=== PATIENT | male | born 1950 | race Caucasian/White ===

== ENCOUNTER → 2020-11-21 14:23 | Outpatient (CLI) | payer MEDICARE, SELFPAY ==
[2020-11-21 18:40] LABS: Anion Gap 9 (5-15); BUN 12 mg/dL (7-18); BUN/Creat Ratio 13.6 RATIO (10-20); Calcium,Total 9.2 mg/dL (8.5-10.1); Chloride 102 mmol/L (98-107); Cholesterol 177 mg/dL (200); Creatinine, Serum 0.88 mg/dL (0.70-1.30); EST Glomerular Filtration Rate 91 mL/min (>60); Est Glom Filt Rate - Afr Amer 111 mL/min (>60); Glucose 109 mg/dL (74-106); High Density Lipoprotein 59 mg/dL; Potassium 3.8 mmol/L (3.5-5.1); Sodium Level 140 mmol/L (136-145); Triglycerides 144 mg/dL; Very Low Density Lipoprotein 29 mg/dL (5-40)
== END ==
PROVIDERS: PCP Family Medicine Geriatric Medicine; Referring Provider Psychiatry & Neurology Psychiatry; Visit Provider Psychiatry & Neurology Psychiatry
DX: R63.4 Abnormal weight loss (principal); Z79.899 Other long term (current) drug therapy
CPT/HCPCS: 36415; 80048; 80061; 84443

== ENCOUNTER 2021-06-12 16:44 | Outpatient (CLI) | payer MEDICARE, SELFPAY ==
[2021-06-12 17:19] LABS: Absolute Lymphocyte Count 1.63 X10^3/uL (0.83-4.51); Absolute Neutrophil Count 4.2 X10^3/uL (2.0-7.7); Basophil# 0.08 X10^3/uL; Basophil% 1.1 % (0-1); Eosinophil# 0.47 X10^3/uL; Eosinophils% 6.4 % (0-5); Hematocrit 43.5 % (40-54); Hemoglobin 14.7 g/dL (13.0-16.5); Lymphocyte # 1.63 X10^3/ul (0.83-4.51); Lymphocyte % 22.1 % (19-41); Mean Corp Hgb Conc 33.8 g/dL (32-36); Mean Corpuscular Hgb 31.5 pg (27.0-32.0); Mean Corpuscular Volume 93.3 fL (80-94); Mean Platelet Vol. 9.3 fl (6.2-12.0); Monocyte# 1.04 X10^3/uL; Monocyte% 14.1 % (0-10); NRBC Flagged by Analyzer 0 % (0-5); Neutrophil # 4.15 X10^3/uL (2.7-7.7); Platelet Count 303 K/mm3 (150-450); RBC Distribution Width CV 13.1 % (11.6-14.6); Red Blood Count 4.66 M/mm3 (4.6-6.2); White Blood Count 7.4 K/mm3 (4.4-11.0)
[2021-06-12 18:06] LABS: AST(SGOT) 16 U/L (15-37); Alanine Aminotransfer ALT/SGPT 18 U/L (16-61); Albumin, Serum 3.5 g/dL (3.2-5.0); Alkaline Phosphatase 82 U/L (45-117); Anion Gap 3 (5-15); BUN 15 mg/dL (7-18); BUN/Creat Ratio 16.3 RATIO (10-20); Calcium,Total 9.1 mg/dL (8.5-10.1); Chloride 106 mmol/L (98-107); Creatinine, Serum 0.92 mg/dL (0.70-1.30); EST Glomerular Filtration Rate 86 mL/min (>60); Est Glom Filt Rate - Afr Amer 104 mL/min (>60); Globulin 3.6 g/dL (2.2-4.2); Glucose 90 mg/dL (74-106); PSA,Total - Annual Screen 3.96 ng/mL (0.00-4.00); Protein, Total 7.1 g/dL (6.4-8.2); Sodium Level 139 mmol/L (136-145); Thyroid Stim Hormone (TSH) 1.77 uIU/mL (0.358-3.74)
[2021-06-13 13:02] LABS: Hepatitis C Antibody Non-Reactive (Nonreactive); Vitamin D,25 Hydroxy 40.8 ng/mL
== END 2021-06-12 23:59 | disposition home or self-care (01) ==
LOC: POLAB3 16:45
PROVIDERS: PCP Family Medicine Geriatric Medicine; Visit Provider Family Medicine Geriatric Medicine
DX: Z00.00 Encounter for general adult medical examination without abnormal findings (principal); E55.9 Vitamin D deficiency, unspecified; R53.83 Other fatigue; Z12.5 Encounter for screening for malignant neoplasm of prostate
CPT/HCPCS: 36415; 80053; 82306; 84153; 84443; 85025; 86803; G0103

== ENCOUNTER → 2022-10-23 | Outpatient (CLI) | payer MEDICARE, SELFPAY, MEDICAID ==
--- NOTE | 2022-10-23 08:45 | AAAS_ITS ---
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 in cross- Peak systolic flow velocities within the proximal sectional axis. aorta measure 68.4 cm/sec. Proximal aorta measures1.96cm. in longitudinal Peak systolic flow velocities within the mid aorta axis. measure 76.4 cm/sec. Mid aorta measures1.57 x 1.53cm. in cross- Peak systolic flow velocities within the distal sectional axis. aorta measure 76.4 cm/sec. Mid aorta measures1.55cm. in longitudinal axis. Distal aorta measures1.33 x 1.21cm. in cross- sectional axis. Distal aorta measures1.39cm. in longitudinal axis. Left Iliac Artery Left iliac artery measures 1.03 x 0.97 cm. in the cross-sectional axis. Left iliac artery measures 1.01 prox cm. in the longitudinal axis. Peak systolic velocity in the left iliac artery measures 105.1 cm/sec. Right Iliac Artery Right iliac artery measures 1.20 x 1.06 cm. in the cross-sectional axis. Right iliac artery measures 1.06 prox cm. in the longitudinal axis. Peak systolic velocity in the right iliac artery measures 94.2 cm/sec. Procedure Aorta IVC Iliac vasculature or bypass grafts [id number]. Exam performed in department. VL/AAA Screening Interpretation Summary Aorta patent, normal caliber Bilateral iliac arteries patent, normal caliber Ordering Physician: Naresh Ambriz Referring Physician: Sudhir Hughes Chi Performed By: Tere Vega, ANDREW, RVT
== END | disposition home or self-care (01) ==
PROVIDERS: PCP Family Medicine Geriatric Medicine; Referring Provider Internal Medicine Cardiovascular Disease; Visit Provider Internal Medicine Cardiovascular Disease
DX: R94.31 Abnormal electrocardiogram [ECG] [EKG] (principal); I10 Essential (primary) hypertension; E78.2 Mixed hyperlipidemia
CPT/HCPCS: 76706

== ENCOUNTER 2023-02-03 17:52 | Inpatient (IN) | payer MEDICARE, MEDICAID, SELFPAY ==
[2023-02-03] VITALS (7 sets, daily range): BP systolic 113–139; BP diastolic 64–81; PULSE 65–85; RESP 13–18; TEMP 36.6–37.1; O2SAT 98–99; BMI 22.4; BMI 22.1
--- NOTE | 2023-02-03 18:05 | CT_ITS ---
STUDY: CT ABDOMEN AND PELVIS WITH CONTRAST REASON FOR EXAM: Male, 72 years old. Rectal bleeding RADIATION DOSAGE (If Supplied By Facility): CTDIvol = ( 10.27 ) mGy, DLP = ( 506.88 ) mGycm TECHNIQUE: Transaxial images were obtained from the dome of the diaphragm to the symphysis pubis without oral contrast. IV 100mL Isovue-370 was administered. Sagittal and coronal images were reconstructed. Individualized dose optimization techniques were used for this CT. COMPARISON: None. FINDINGS: The visualized lung bases show underlying emphysema. The visualized portions of the heart are within normal limits. Normal liver. There are multiple gallstones. Normal spleen. Normal pancreas. Normal bilateral adrenal glands. There is a horseshoe kidney without obstructive uropathy or suspicious solid renal lesion, no nephrolithiasis. Normal visualized stomach. Nondistended fluid-filled small and large bowel loops throughout the abdomen suggests diffuse enteritis there is also retained stool in the colon and scattered colonic diverticula. No CT evidence of acute diverticulitis. Aorta not visualized There is diffuse atherosclerotic calcification of the abdominal aorta, without a demonstrated aneurysm. Normal inferior vena cava. Normal retroperitoneum. Normal urinary bladder. There is a left-sided inguinal hernia containing adipose tissue. There are degenerative changes of the visualized lumbar spine, and pelvis. CT/Abdomen/Pelvis W IV Cont ONLY IMPRESSION: Horseshoe kidney noted without obstructive uropathy or suspicious solid renal lesion. Cholelithiasis, no sonographic evidence of acute cholecystitis Retained stool throughout the majority of the colon with scattered colonic diverticula but no CT evidence of acute diverticulitis Fluid distended small bowel loops and ascending colon consistent with diffuse enteritis Electronically Signed: Man Millan MD at 19:53 EDT ,
[2023-02-03] MEDS: 0.9% Normal Saline (1000mL) 1,000 ML 999 ML IV (18:12)
[2023-02-03 18:13] LABS: Absolute Lymphocyte Count 1.24 X10^3/uL (0.83-4.51); Absolute Neutrophil Count 7.2 X10^3/uL (2.0-7.7); Basophil# 0.05 X10^3/uL; Basophil% 0.5 % (0-1); Eosinophil# 0.07 X10^3/uL; Eosinophils% 0.8 % (0-5); Hematocrit 29.1 % (40-54); Hemoglobin 9.4 g/dL (13.0-16.5); Lymphocyte # 1.24 X10^3/ul (0.83-4.51); Lymphocyte % 13.4 % (19-41); Mean Corp Hgb Conc 32.3 g/dL (32-36); Mean Corpuscular Hgb 29.8 pg (27.0-32.0); Mean Corpuscular Volume 92.4 fL (80-94); Mean Platelet Vol. 8.8 fl (6.2-12.0); Monocyte# 0.64 X10^3/uL; Monocyte% 6.9 % (0-10); NRBC Flagged by Analyzer 0 % (0-5); Neutrophil # 7.18 X10^3/uL (2.7-7.7); Neutrophil % 77.9 % (47-70); Platelet Count 412 K/mm3 (150-450); RBC Distribution Width CV 12.1 % (11.6-14.6); RBC Distribution Width SD 41.1 fl (35.1-43.9); Red Blood Count 3.15 M/mm3 (4.6-6.2); White Blood Count 9.2 K/mm3 (4.4-11.0)
--- NOTE | 2023-02-03 18:20 | RAD_ITS ---
STUDY: X-RAY CHEST REASON FOR EXAM: Male, 72 years old. dyspnea TECHNIQUE: 2 AP portable views COMPARISON: None. FINDINGS: EKG leads overlie the chest The lungs are clear and expanded. There is no demonstrated pleural abnormality. Normal size heart. Normal mediastinum and stefano. Normal visualized pulmonary arteries. Normal visualized aortic arch and descending thoracic aorta. Normal visualized thoracic spine. Normal visualized ribs, clavicles, and shoulders. There is no demonstrated abnormality of the visualized soft tissue structures of the upper abdomen. RAD/Chest 1 View (Portable) IMPRESSION: No acute pulmonary process Electronically Signed: Man Millan MD at 19:09 EDT ,
[2023-02-03 18:34] LABS: ALB/GLOB Ratio 0.8 RATIO (0.9-2.4); AST(SGOT) 10 U/L (15-37); Alanine Aminotransfer ALT/SGPT 17 U/L (16-61); Albumin, Serum 2.7 g/dL (3.2-5.0); Alkaline Phosphatase 77 U/L (45-117); Anion Gap 8 (5-15); BUN 22 mg/dL (7-18); BUN/Creat Ratio 22.2 RATIO (10-20); Calcium,Total 8.4 mg/dL (8.5-10.1); Chloride 97 mmol/L (98-107); Creatinine, Serum 0.99 mg/dL (0.70-1.30); EST Glomerular Filtration Rate 79 mL/min (>60); Est Glom Filt Rate - Afr Amer 96 mL/min (>60); Estimated Creatinine Clearance 69.82 ml/min; Globulin 3.2 g/dL (2.2-4.2); Glucose 132 mg/dL (74-106); Lipase 18 U/L (13-75); Potassium 3.6 mmol/L (3.5-5.1); Protein, Total 5.9 g/dL (6.4-8.2); Sodium Level 132 mmol/L (136-145); Troponin-I HS 14 pg/mL (3.0-78.0)
[2023-02-03 20:02] LABS: Bacteria 0 SEEN /hpf (None Seen); Mucous, Urine 0 SEEN /hpf (<or=2+); Red Blood Cells-Urine 0 SEEN /hpf (0-5); Squamous Epithelial Cells - UA 0 SEEN /hpf (0-5)
[2023-02-03 20:09] LABS: Color, Urine Yellow (Yellow); Glucose, Dipstick Normal (Normal); Ketone-Dipstick Negative (Negative); Leukocyte Esterase-Dipstick 25 /ul (Negative); Nitrite-Dipstick Negative (Negative); Occult Blood-Urine Negative /ul (Negative); Protein-Dipstick Negative (Negative); Specific Gravity, Urine 1.015 (1.002-1.030); Urine Bilirubin Dipstick Negative (Negative); Urine Clarity Clear (Clear); Urine Urobilinogen Normal (Normal)
--- NOTE | 2023-02-03 20:16 | PCM.HP.STD ---
HPI - General General Date of Admission: 02/03/23 Date of Service: 02/03/23 Chief Complaint: Rectal bleed for 3 times along with dizziness, near syncope on standing up HPI Nora LEDEZMA, is a 72 M who lives as assisted living in [facility] was brought by EMS for rectal bleed and feeling of dizziness and near syncopal episode. Patient states he has liquid dark stool like brownishabout 3-4 times per day for last 3 days. Patient thought that it will get better but today he felt dizzy lightheaded and near passing out when he tried to stand up. He was also near falls issues but he caught the chair therefore did not fall. Patient denies prior history of GI bleed. Never had colonoscopy. Denies abdominal pain, nausea or vomiting. Apparently [facility] called and notified that patient is COVID-positive. CT abdomen was done which shows fluid-filled dilated small bowel and ascending colon. Retained stool throughout the majority of colon with scattered colonic diverticula but no CT evidence of acute diverticulitis. In ED, patient vitals were in normal range. Patient not tachycardic. [facility] Medical History Abnormal EKG Essential hypertension Mixed hyperlipidemia Paranoid schizophrenia Home Medications bupropion HCl 150 mg tablet,12 hr sustained-release 150 mg PO BID 09/25/22 [History Last Taken Unknown] hydrochlorothiazide 25 mg tablet 25 mg PO DAILY 09/25/22 [History Last Taken Unknown] polyethylene glycol 3350 17 gram oral powder packet 17 g PO DAILY 09/25/22 [History Last Taken Unknown] acetaminophen 500 mg tablet 1,000 mg PO BID PRN fever or pain 10/14/22 [History Last Taken Unknown] haloperidol 5 mg tablet 5 mg PO QHS 10/14/22 [History Last Taken Unknown] sennosides 8.6 mg-docusate sodium 50 mg tablet (Senna Plus) 1 tab-cap PO BID 10/14/22 [History Last Taken Unknown] celecoxib 100 mg capsule 100 mg PO Q12H 02/03/23 [History Last Taken Unknown] tamsulosin 0.4 mg capsule 0.4 mg PO QHS 02/03/23 [History Last Taken Unknown] Allergy/AdvReac Type Severity Reaction Status Date / Time lisinopril Allergy Unknown Unknown Verified 02/03/23 17:54 Family History Father Cancer Surgical History History of tonsillectomy Social History Smoking Status: Current every day smoker tobacco type: cigarettes how long ago did patient quit smokin year ago alcohol intake: never substance use type: does not use caffeine: No ROS ROS Narrative Constitutional: Reports fatigue and weakness. No fever. HEENT: Reports systems reviewed and no addt'l complaints, except as documented Respiratory/Chest: No acute shortness of breath or respiratory distress or wheezing. CVS: No chest pain tightness or pressure. Gastrointestinal: No abdominal pain. Rest as described in HPI. No hematemesis or vomiting. Genitourinary: Denies burning urination or new urinary tract symptoms Musculoskeletal: Chronic C-spine arthritis. On celecoxib. Denies acute joint pain or limited range of motion. No acute injury Neurologic: Denies seizure-like symptoms. Psychiatric: History of paranoid schizophrenia. On antidepressant medication. skin: No ulcer. No rash Endocrinology: Reports systems reviewed and no addt'l complaints, except as documented Hematologic/Lymphatic: Reports systems reviewed and no addt'l complaints, except as documented Rest 14 ROS are negative except as mentioned in HPI Vital Signs Vital Signs Vital Signs: 02/03/23 17:54 02/03/23 17:55 02/03/23 19:08 Temperature 98.8 F Temperature Source Oral Pulse Rate 85 77 Respiratory Rate 16 16 Respiratory Effort Normal Non-Labored Respiratory Pattern Normal Blood Pressure 113/79 139/76 H Blood Pressure Mean 90 97 Pulse Ox 99 99 Oxygen Delivery Method Room Air Room Air 02/03/23 19:38 Temperature Temperature Source Pulse Rate 81 Respiratory Rate 13 Respiratory Effort Respiratory Pattern Blood Pressure 129/81 H Blood Pressure Mean 97 Pulse Ox 99 Oxygen Delivery Method Room Air Weight Weight: 156 lb 11.979 oz Body Mass Index (BMI) 22.4 Physical Exam Narrative General: Alert, Oriented x3, Cooperative HEENT: Atraumatic, PERRLA, EOMI, Normocephalic Oral: Oral mucosa dry. No Gingival or Mucosal Lesions/ Ulcerations Neck: Supple, No JVD, Negative Carotid Bruits Lungs: Air entry diminished in bilateral lung bases. No crepitation/rhonchi Cardiovascular: Regular rate, Regular Rhythm, Normal S1, Normal S2, No murmurs Abdomen: Bowel Sounds Present, Soft, Non Tender, Non-Distended. No palpable mass. : No renal angle tenderness. No suprapubic tenderness. Extremities: No edema, Capillary Refill Less than 3 Seconds Skin: No rashes, No breakdown Musculoskeletal: No Tenderness to Palpation of Joints or Extremities Neurological: Cranial nerves II-XII grossly intact, DTR 2+/4. No acute focal neurological deficit. Psych/Mental Status: Normal Affect, Appropriate. Results Lab / Micro Data 02/03/23 17:59 02/03/23 17:59 Labs: Laboratory Results - last 24 hr 02/03/23 17:59: WBC 9.2, RBC 3.15 L, Hgb 9.4 L, Hct 29.1 L, MCV 92.4, MCH 29.8, MCHC 32.3, RDW Std Deviation 41.1, RDW Coeff of Terry 12.1, Plt Count 412, MPV 8.8, Immature Gran % (Auto) 0.500, Neut % (Auto) 77.9 H, Lymph % (Auto) 13.4 L, Stone % (Auto) 6.9, Eos % (Auto) 0.8, Baso % (Auto) 0.5, Absolute Neuts (auto) 7.2, Absolute Lymphs (auto) 1.24, Nucleated RBC % 0, Sodium 132 L, Potassium 3.6, Chloride 97 L, Carbon Dioxide 27.0, Anion Gap 8, BUN 22 H, Creatinine 0.99, Estim Creat Clear Calc 69.82, Est GFR (MDRD) Af Amer 96, Est GFR (MDRD) Non-Af 79, BUN/Creatinine Ratio 22.2 H, Glucose 132 H, Calcium 8.4 L, Total Bilirubin 0.30, AST 10 L, ALT 17, Alkaline Phosphatase 77, Troponin I High Sens 14, Total Protein 5.9 L, Albumin 2.7 L, Globulin 3.2, Albumin/Globulin Ratio 0.8 L, Lipase 18 02/03/23 18:10: Blood Type O POSITIVE, Antibody Screen NEGATIVE 02/03/23 19:55: Urine Color Yellow, Urine Clarity Clear, Urine pH 6.0, Ur Specific [place] 1.015, Urine Protein Negative, Urine Glucose (UA) Normal, Urine Ketones Negative, Urine Occult Blood Negative, Urine Nitrite Negative, Urine Bilirubin Negative, Urine Urobilinogen Normal, Ur Leukocyte Esterase 25 H Radiology Impression Abdomen/Pelvis CT 02/03/23 18:05 IMPRESSION: Horseshoe kidney noted without obstructive uropathy or suspicious solid renal lesion. Cholelithiasis, no sonographic evidence of acute cholecystitis Retained stool throughout the majority of the colon with scattered colonic diverticula but no CT evidence of acute diverticulitis Fluid distended small bowel loops and ascending colon consistent with diffuse enteritis Electronically Signed: Man Millan MD at 19:53 EDT , Chest X-Ray 02/03/23 18:20 IMPRESSION: No acute pulmonary process Electronically Signed: Man Millan MD at 19:09 EDT , Assessment & Plan Assessment/Plan (1) Lower GI bleed: PLAN: Plan This is a 72-year-old gentleman being admitted for rectal bleed consistent with lower GI bleed. 1. Acute GI bleed, exact etiology unclear most likely lower but possible differential diverticular bleed, less likely enteritis, possible rapid transit from upper GI bleed: Patient is being admitted in PCU. Does not have abdominal pain but CT shows fluid-filled distended small bowel loops fluid-filled dilated small bowel and ascending colon. Retained stool throughout the majority of colon with scattered colonic diverticula but no CT evidence of acute diverticulitis. GI is consulted. Discussed with Dr. Aceves and colon prep ordered for colonoscopy tomorrow AM. Started on Protonix 40 mg IV twice daily. Hold celecoxib. IV fluid Ringer lactate 100 ml per hour for 2 L. Hold home stool softeners. Stool for enteric bacteriology panel, ova parasite and stool C. difficile sent by ED 2. Acute blood loss anemia secondary to GI bleed: Patient baseline hemoglobin is between 14 to 15 g. It dropped to 9.4 g. H&H every 6 hourly. Type and crossmatch and transfuse if hemoglobin drops less than 7 g or hemodynamic instability. 3. long-term reporting of COVID-19 infection: COVID-19 PCR ordered. Patient does not have shortness of breath chest pain fever abdominal pain. Currently no indication for dexamethasone or remdesivir. Exact time of onset is unclear. Patient tested on 02/01/2023 from no swab probably rapid antigen test. 5. Chronic cervical spine arthritis on celecoxib: Hold celecoxib admission level. Continue acetaminophen for pain. 6. Hypertension and dyslipidemia: Hold HCTZ as patient looks dehydrated and having symptoms of near syncope. Patient also on tamsulosin probably for BPH 7. Paranoid schizophrenia: Patient on buprenorphine and haloperidol continued. Advanced directive. Living will/advanced directive/end of life care: Patient does not have living will or advanced directive. 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 After discussion of benefits/risks procedures involved with full code, DNR CC arrest and DNR CC, the patient opted for DNRCC arrest with no intubation Patient doesn't want artificial life support including intubation, tube feed, ventilator and/chest compression, and DC shock if needed Total time spent in [id number] encounter in discussion of advanced directive 17 minutes. Laboratory Results 02/03/23 17:59: WBC 9.2, RBC 3.15 L, Hgb 9.4 L, Hct 29.1 L, MCV 92.4, MCH 29.8, MCHC 32.3, RDW Std Deviation 41.1, RDW Coeff of Terry 12.1, Plt Count 412, MPV 8.8, Immature Gran % (Auto) 0.500, Neut % (Auto) 77.9 H, Lymph % (Auto) 13.4 L, Stone % (Auto) 6.9, Eos % (Auto) 0.8, Baso % (Auto) 0.5, Absolute Neuts (auto) 7.2, Absolute Lymphs (auto) 1.24, Nucleated RBC % 0, Sodium 132 L, Potassium 3.6, Chloride 97 L, Carbon Dioxide 27.0, Anion Gap 8, BUN 22 H, Creatinine 0.99, Estim Creat Clear Calc 69.82, Est GFR (MDRD) Af Amer 96, Est GFR (MDRD) Non-Af 79, BUN/Creatinine Ratio 22.2 H, Glucose 132 H, Calcium 8.4 L, Magnesium 2.0, Total Bilirubin 0.30, AST 10 L, ALT 17, Alkaline Phosphatase 77, Troponin I High Sens 14, Total Protein 5.9 L, Albumin 2.7 L, Globulin 3.2, Albumin/Globulin Ratio 0.8 L, Lipase 18 02/03/23 18:10: Blood Type O POSITIVE, Antibody Screen NEGATIVE 02/03/23 19:55: Urine Color Yellow, Urine Clarity Clear, Urine pH 6.0, Ur Specific [place] 1.015, Urine Protein Negative, Urine Glucose (UA) Normal, Urine Ketones Negative, Urine Occult Blood Negative, Urine Nitrite Negative, Urine Bilirubin Negative, Urine Urobilinogen Normal, Ur Leukocyte Esterase 25 H, Urine RBC 0 SEEN, Urine WBC 0-5 SEEN, Ur Squamous Epith Cells 0 SEEN, Urine Bacteria 0 SEEN, Urine Mucus 0 SEEN 02/03/23 20:42: PT Pending, INR Pending Charges/Coding Visit Charges Inpatient E&M: 03437 Init Hosp L3 Procedures Hospitalists Procedures: 26124 Advncd Care Plan 30 Min
[2023-02-03 20:33] LABS: White Blood Cells 0-5 SEEN /hpf (0-5)
--- NOTE | 2023-02-03 20:45 | EDS_ITS ---
HPI HPI - GI History of Present Illness Chief Complaint: GI Bleed Narrative Narrative: 72-year-old male presenting with lower GI bleed. He had dark stools times a day for the last 3 days. He states has been lightheaded since this started. Denies any significant abdominal pain. No fevers or chills. No nausea or vomiting. Patient not on any blood thinners. Patient denies any history of GI bleed. PFSH PFS Medical History Abnormal EKG Essential hypertension Mixed hyperlipidemia Paranoid schizophrenia Home Medications bupropion HCl 150 mg tablet,12 hr sustained-release 150 mg PO BID 09/25/22 [History Last Taken Unknown] hydrochlorothiazide 25 mg tablet 25 mg PO DAILY 09/25/22 [History Last Taken Unknown] polyethylene glycol 3350 17 gram oral powder packet 17 g PO DAILY 09/25/22 [History Last Taken Unknown] acetaminophen 500 mg tablet 1,000 mg PO BID PRN fever or pain 10/14/22 [History Last Taken Unknown] haloperidol 5 mg tablet 5 mg PO QHS 10/14/22 [History Last Taken Unknown] sennosides 8.6 mg-docusate sodium 50 mg tablet (Senna Plus) 1 tab-cap PO BID 10/14/22 [History Last Taken Unknown] celecoxib 100 mg capsule 100 mg PO Q12H 02/03/23 [History Last Taken Unknown] tamsulosin 0.4 mg capsule 0.4 mg PO QHS 02/03/23 [History Last Taken Unknown] Allergy/AdvReac Type Severity Reaction Status Date / Time lisinopril Allergy Unknown Unknown Verified 02/03/23 17:54 Family History Father Cancer Surgical History History of tonsillectomy Social History Smoking Status: Current every day smoker tobacco type: cigarettes how long ago did patient quit smokin year ago alcohol intake: never substance use type: does not use caffeine: No ROS ROS ED Constitutional Constitutional ED: Denies chills, fever(s) or sweats Eyes Eyes: Denies blurry vision or change in vision ENT ENT ED: Denies ear pain or sore throat Cardiovascular Cardiovascular: Reports other Details: Lightheadedness ; Denies chest pain, palpitations or racing heartbeat Respiratory/Chest Respiratory/Chest: Denies cough, dyspnea or sputum Gastrointestinal Gastrointestinal: Reports other Details: Bloody stools ; Denies abdominal pain, constipation, diarrhea, nausea or vomiting Genitourinary Genitourinary ED: Denies dysuria, hematuria or urinary frequency Musculoskeletal Musculoskeletal: Denies arthralgias, myalgias or neck pain Integumentary Denies abscess, Abrasions or rash Neurologic Neurologic: Denies headache(s), paresthesias or weakness Psychiatric Psychiatric: Denies anxiety, depression, suicidal ideation or suicidal thoughts Endocrine Endocrinology: Denies polydipsia or polyuria EXAM Physical Exam Const Vital Signs: 02/03/23 17:54 02/03/23 17:55 02/03/23 19:08 Temperature 98.8 F Temperature Source Oral Pulse Rate 85 77 Respiratory Rate 16 16 Respiratory Effort Normal Non-Labored Respiratory Pattern Normal Blood Pressure 113/79 139/76 H Blood Pressure Mean 90 97 Pulse Ox 99 99 Oxygen Delivery Method Room Air Room Air 02/03/23 19:38 Temperature Temperature Source Pulse Rate 81 Respiratory Rate 13 Respiratory Effort Respiratory Pattern Blood Pressure 129/81 H Blood Pressure Mean 97 Pulse Ox 99 Oxygen Delivery Method Room Air Positive well nourished General Appearance ED: NAD; Negative for pallor HEENT Reports moist mucous membranes normocephalic and atraumatic Eyes PERRL and EOMs intact bilaterally General Eye ED: Yes pale conjunctiva Neck no lymphadenopathy Resp normal respiratory effort Cardio regular rate and regular rhythm GI non-tender and non-distended Palpation: soft Back/Spine no CVA tenderness Neuro CN's II-XII intact bilaterally Sensorium / Orientation: alert Psych mental status grossly normal Skin no wounds General Skin Exam: Negative for jaundice or pallor MDM MDM MDM Narrative Medical decision making narrative: Patient presenting with bloody bowel movements for last 3 days and he is also complaining of lightheadedness and shortness of breath. differential includes upper GI bleed, lower GI bleed, anemia, dehydration, electrolyte normalities, colitis, diverticulitis, enteritis. CBC will be obtained to assess white blood cell count, hemoglobin, platelets. CMP to assess liver function, renal function and electrolytes. High-sensitivity troponin and EKG will be obtained to assess for ischemia/dysrhythmia. Chest x-ray rule pneumonia. She will be typed and screened. He has obvious bloody stool on exam so I did not send an occult stool. Clinically the patient describes orthostatic so I did not do orthostatics here today. His hemoglobin is 9.4 sleep 14.7 a year ago. CMP unremarkable. High-sensitivity troponin is 14. EKG normal sinus rhythm with a ventricular rate of 80 bpm without sign of ischemic change or ectopy on my interpretation. Chest x-ray my interpretation shows no acute process. CT of the abdomen pelvis shows diffuse enteritis. I spoke with Dr. Aceves who recommended doing stool studies and admitting the patient. Discussed with the hospitalist for admission. After the patient was admitted the long term called and stated that the patient was positive for COVID. He had not mentioned this. I discussed this with the hospitalist. Patient placed on precautions. Impression: 1. Enteritis 2. Lower GI bleed 3. Acute blood loss anemia 4. COVID-19 Lab Data Labs: Laboratory Results - last 24 hr 02/03/23 02/03/23 02/03/23 17:59 18:10 19:55 WBC 9.2 RBC 3.15 L Hgb 9.4 L Hct 29.1 L MCV 92.4 MCH 29.8 MCHC 32.3 RDW Std Deviation 41.1 RDW Coeff of Terry 12.1 Plt Count 412 MPV 8.8 Immature Gran % (Auto) 0.500 Neut % (Auto) 77.9 H Lymph % (Auto) 13.4 L [place] % (Auto) 6.9 Eos % (Auto) 0.8 Baso % (Auto) 0.5 Absolute Neuts (auto) 7.2 Absolute Lymphs (auto) 1.24 Nucleated RBC % 0 Sodium 132 L Potassium 3.6 Chloride 97 L Carbon Dioxide 27.0 Anion Gap 8 BUN 22 H Creatinine 0.99 Estim Creat Clear Calc 69.82 Est GFR (MDRD) Af Amer 96 Est GFR (MDRD) Non-Af 79 BUN/Creatinine Ratio 22.2 H Glucose 132 H Calcium 8.4 L Magnesium 2.0 Total Bilirubin 0.30 AST 10 L ALT 17 Alkaline Phosphatase 77 Troponin I High Sens 14 Total Protein 5.9 L Albumin 2.7 L Globulin 3.2 Albumin/Globulin Ratio 0.8 L Lipase 18 Urine Color Yellow Urine Clarity Clear Urine pH 6.0 Ur Specific [place] 1.015 Urine Protein Negative Urine Glucose (UA) Normal Urine Ketones Negative Urine Occult Blood Negative Urine Nitrite Negative Urine Bilirubin Negative Urine Urobilinogen Normal Ur Leukocyte Esterase 25 H Urine RBC 0 SEEN Urine WBC 0-5 SEEN Ur Squamous Epith Cells 0 SEEN Urine Bacteria 0 SEEN Urine Mucus 0 SEEN Blood Type O POSITIVE Antibody Screen NEGATIVE Radiography Diagnostic Testing: Clinical Impression(s) from Imaging Studies Abdomen/Pelvis CT 02/03/23 18:05 IMPRESSION: Horseshoe kidney noted without obstructive uropathy or suspicious solid renal lesion. Cholelithiasis, no sonographic evidence of acute cholecystitis Retained stool throughout the majority of the colon with scattered colonic diverticula but no CT evidence of acute diverticulitis Fluid distended small bowel loops and ascending colon consistent with diffuse enteritis Electronically Signed: Man Millan MD at 19:53 EDT , Chest X-Ray 02/03/23 18:20 IMPRESSION: No acute pulmonary process Electronically Signed: Man Millan MD at 19:09 EDT , Discharge Plan Triage Chief Complaint: GI Bleed Other Complaint: Syncope ED Provider: Alec Grady Dx/Rx/DC Orders Primary Care Provider: Sudhir Hughes Chi
--- NOTE | 2023-02-03 20:49 | EKG12_ITS ---
Test Reason : Blood Pressure : / mmHG Vent. Rate : 080 BPM Atrial Rate : 080 BPM P-R Int : 162 ms QRS Dur : 090 ms QT Int : 360 ms P-R-T Axes : 064 059 053 degrees QTc Int : 415 ms Normal sinus rhythm Normal ECG No previous ECGs available Confirmed by ANIVAL ARTHRU, CLAUDIA ([id number]), news editor ABIGAIL VELÁSQUEZ ([id number]) on 02/04/2023 1:40:24 PM Referred By: Confirmed By:CLAUDIA FLORIAN MD
[2023-02-03 21:21] LABS: International Normalized Ratio 1.2; Prothrombin Time (Protime)PT. 14.8 SECONDS (11.7-14.9)
[2023-02-03] MEDS: Lactated Ringers 1,000 ML 100 ML IV (21:57)
[2023-02-03] MEDS: 0.9% Saline Lock 10 ML Syringe IV (21:58)
[2023-02-03] MEDS: Electrolyte Solution/Peg's 4000 ML 2000 ML PO (21:58)
[2023-02-03] MEDS: Tamsulosin HCl 0.4 MG Capsule PO (22:40)
[2023-02-03] MEDS: Haloperidol 5 MG Tablet PO (22:40)
[2023-02-03] MEDS: MELATONIN 10 MG TABLET PO (22:40)
[2023-02-03] MEDS: buPROPion (SR) 150 MG Tablet.SA PO (22:40)
[2023-02-03] MEDS: Pantoprazole Sodium 40 MG in 0.9% Normal Saline (100mL MB+) 100 ML 330 MG IV (22:41)
--- NOTE | 2023-02-03 23:00 | CON.PCM.GI_ITS ---
HPI Consult Data Date of Consult: 02/03/23 HPI Narrative Reason for Consultation: GI bleed HPI Narrative: HALI LEDEZMA, is a 72 M who presents by EMS for rectal bleed and feeling of dizziness and near syncopal episode. Patient states he has liquid dark stool like brownishabout 3-4 times per day for last 3 days. Patient thought that it will get better but today he felt dizzy lightheaded and near passing out when he tried to stand up. He was also near falls issues but he caught the chair therefore did not fall. Patient denies prior history of GI bleed. Never had colonoscopy. Denies abdominal pain, nausea or vomiting. Apparently senior care called and notified that patient is COVID-positive. CT abdomen was done which shows fluid-filled dilated small bowel and ascending colon. Retained stool throughout the majority of colon with scattered colonic diverticula but no CT evidence of acute diverticulitis. He had a significant drop in his hemoglobin and I was consulted for management lower GI bleed. [facility] Medical History Abnormal EKG Essential hypertension Mixed hyperlipidemia Paranoid schizophrenia Home Medications bupropion HCl 150 mg tablet,12 hr sustained-release 150 mg PO BID 09/25/22 [History Last Taken Unknown] hydrochlorothiazide 25 mg tablet 25 mg PO DAILY 09/25/22 [History Last Taken Unknown] polyethylene glycol 3350 17 gram oral powder packet 17 g PO DAILY 09/25/22 [History Last Taken Unknown] acetaminophen 500 mg tablet 1,000 mg PO BID PRN fever or pain 10/14/22 [History Last Taken Unknown] haloperidol 5 mg tablet 5 mg PO QHS 10/14/22 [History Last Taken Unknown] sennosides 8.6 mg-docusate sodium 50 mg tablet (Senna Plus) 1 tab-cap PO BID 10/14/22 [History Last Taken Unknown] celecoxib 100 mg capsule 100 mg PO Q12H 02/03/23 [History Last Taken Unknown] melatonin 10 mg tablet 10 mg PO QHS insomnia 02/03/23 [History Last Taken 02/02/23] tamsulosin 0.4 mg capsule 0.4 mg PO QHS 02/03/23 [History Last Taken Unknown] Allergy/AdvReac Type Severity Reaction Status Date / Time lisinopril Allergy Unknown Unknown Verified 02/03/23 21:59 Family History Father Cancer Surgical History History of tonsillectomy Social History Smoking Status: Current every day smoker tobacco type: cigarettes how long ago did patient quit smokin year ago alcohol intake: never substance use type: does not use caffeine: No ROS ROS Narrative Constitutional: Reports fatigue and weakness. No fever. HEENT: Reports systems reviewed and no addt'l complaints, except as documented Respiratory/Chest: No acute shortness of breath or respiratory distress or wheezing. CVS: No chest pain tightness or pressure. Gastrointestinal: No abdominal pain. Rest as described in HPI. No hematemesis or vomiting. Genitourinary: Denies burning urination or new urinary tract symptoms Musculoskeletal: Chronic C-spine arthritis. On celecoxib. Denies acute joint pain or limited range of motion. No acute injury Neurologic: Denies seizure-like symptoms. Psychiatric: History of paranoid schizophrenia. On antidepressant medication. skin: No ulcer. No rash Endocrinology: Reports systems reviewed and no addt'l complaints, except as documented Hematologic/Lymphatic: Reports systems reviewed and no addt'l complaints, except as documented Rest 14 ROS are negative except as mentioned in HPI Physical Exam Narrative General: Alert, Oriented x3, Cooperative HEENT: Atraumatic, PERRLA, EOMI, Normocephalic Oral: Oral mucosa dry. No Gingival or Mucosal Lesions/ Ulcerations Neck: Supple, No JVD, Negative Carotid Bruits Lungs: Air entry diminished in bilateral lung bases. No crepitation/rhonchi Cardiovascular: Regular rate, Regular Rhythm, Normal S1, Normal S2, No murmurs Abdomen: Bowel Sounds Present, Soft, Non Tender, Non-Distended. No palpable mass. : No renal angle tenderness. No suprapubic tenderness. Extremities: No edema, Capillary Refill Less than 3 Seconds Skin: No rashes, No breakdown Musculoskeletal: No Tenderness to Palpation of Joints or Extremities Neurological: Cranial nerves II-XII grossly intact, DTR 2+/4. No acute focal neurological deficit. Psych/Mental Status: Normal Affect, Appropriate. Lab / Micro Data 02/04/23 08:30 02/04/23 03:44 Labs: Laboratory Results - last 24 hr 02/03/23 17:59: WBC 9.2, RBC 3.15 L, Hgb 9.4 L, Hct 29.1 L, MCV 92.4, MCH 29.8, MCHC 32.3, RDW Std Deviation 41.1, RDW Coeff of Terry 12.1, Plt Count 412, MPV 8.8, Immature Gran % (Auto) 0.500, Neut % (Auto) 77.9 H, Lymph % (Auto) 13.4 L, [place] % (Auto) 6.9, Eos % (Auto) 0.8, Baso % (Auto) 0.5, Absolute Neuts (auto) 7.2, Absolute Lymphs (auto) 1.24, Nucleated RBC % 0, Sodium 132 L, Potassium 3.6, Chloride 97 L, Carbon Dioxide 27.0, Anion Gap 8, BUN 22 H, Creatinine 0.99, Estim Creat Clear Calc 69.82, Est GFR (MDRD) Af Amer 96, Est GFR (MDRD) Non-Af 79, BUN/Creatinine Ratio 22.2 H, Glucose 132 H, Calcium 8.4 L, Magnesium 2.0, Total Bilirubin 0.30, AST 10 L, ALT 17, Alkaline Phosphatase 77, Troponin I High Sens 14, Total Protein 5.9 L, Albumin 2.7 L, Globulin 3.2, Albumin/Globulin Ratio 0.8 L, Lipase 18 02/03/23 18:10: Blood Type O POSITIVE, Antibody Screen NEGATIVE, Crossmatch See Detail 02/03/23 19:55: Urine Color Yellow, Urine Clarity Clear, Urine pH 6.0, Ur Specific [place] 1.015, Urine Protein Negative, Urine Glucose (UA) Normal, Urine Ketones Negative, Urine Occult Blood Negative, Urine Nitrite Negative, Urine Bilirubin Negative, Urine Urobilinogen Normal, Ur Leukocyte Esterase 25 H, Urine RBC 0 SEEN, Urine WBC 0-5 SEEN, Ur Squamous Epith Cells 0 SEEN, Urine Bacteria 0 SEEN, Urine Mucus 0 SEEN 02/03/23 20:42: PT 14.8, INR 1.2 02/03/23 23:04: Hgb 9.4 L, Hct 29.1 L 02/04/23 03:44: WBC 8.7, RBC 2.46 L, Hgb 7.4 L, Hct 22.7 L, MCV 92.3, MCH 30.1, MCHC 32.6, RDW Std Deviation 41.3, RDW Coeff of Terry 12.1, Plt Count 277, MPV 8.3, Immature Gran % (Auto) 0.600, Neut % (Auto) 63.0, Lymph % (Auto) 22.6, [place] % (Auto) 10.3 H, Eos % (Auto) 2.9, Baso % (Auto) 0.6, Absolute Neuts (auto) 5.5, Absolute Lymphs (auto) 1.96, Nucleated RBC % 0, PT 14.9, INR 1.2, APTT 30.0, Sodium 136, Potassium 3.1 L, Chloride 102, Carbon Dioxide 27.0, Anion Gap 7, BUN 17, Creatinine 0.64 L, Estim Creat Clear Calc 67.96, Est GFR (MDRD) Af Amer 159, Est GFR (MDRD) Non-Af 132, BUN/Creatinine Ratio 26.6 H, Glucose 89, Calcium 7.6 L 02/04/23 08:30: Hgb 9.0 L, Hct 27.8 L Micro: Microbiology 02/04/23 01:20 Mucosa - Nasopharyngeal Coronavirus COVID-19 PCR - Final SARS-CoV-2 (COVID 19) 02/03/23 Unknown Stool Enteric Bacteriology - Final 02/03/23 Unknown Stool C. 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 Cholelithiasis, no sonographic evidence of acute cholecystitis Retained stool throughout the majority of the colon with scattered colonic diverticula but no CT evidence of acute diverticulitis Fluid distended small bowel loops and ascending colon consistent with diffuse enteritis Electronically Signed: Man Millan MD at 19:53 EDT , Chest X-Ray 02/03/23 18:20 IMPRESSION: No acute pulmonary process Electronically Signed: Man Millan MD at 19:09 EDT , Assessment & Plan Assessment/Plan (1) Lower GI bleed: PLAN: Plan This is a 72-year-old gentleman being admitted for rectal bleed consistent with lower GI bleed. Acute GI bleed, exact etiology unclear most likely lower but possible differential diverticular bleed, less likely enteritis, possible rapid transit from upper GI bleed: I suspect it is a diverticular bleed however he has never had a colonoscopy in the past. He should undergo colonoscopy for evaluation of his lower GI tract. He was explained alternatives, risk, benefits including outstanding bleeding, infection, sepsis, perforation, need for emergent urgent . He he will have an ASA of 3. Charges/Coding Visit Charges Inpatient E&M: 14920 Init Hosp L3
[2023-02-03 23:10] LABS: Hematocrit 29.1 % (40-54); Hemoglobin 9.4 g/dL (13.0-16.5)
[2023-02-04] VITALS (12 sets, daily range): BP systolic 93–137; BP diastolic 40–78; PULSE 56–82; RESP 14–18; TEMP 36.1–37; O2SAT 16–100
--- NOTE | 2023-02-04 | COLBX_PTH ---
PATIENT: HALI LEDEZMA Jr. LOC: [facility] U#:[id number] AGE/SX: 72/M ROOM: [facility] RE02/03/[address]: Dr. Keyla Virk MD : 1950 BED: 1 DIS: 02/05/2023 SPEC #: [id number] RECD: 02/04/23 14:03 STATUS: ANGÉLICA GAURI #: [id number] TAB: 02/04/23 00:[address]: Nj Aceves DEPT: SURGICAL PATHOLOGY RECD BY: Sy Caputo ENTERED: 02/04/23 14:03 SP TYPE: COLON BX OTHR DR: MD Dr. Dejan Boyce MD Dr. Tai Chi Kwok, MD Tissues: COLON BIOPSY Procedures: Surgery Specimen Level IV Comments: @ Ordering doctor for SUIV edited from to @ by SRINIVASAN at 02/04/23 1549 @ Submitting doctor edited from to @ by RGOOD at 02/04/23 1549 HEADER OPERATION: Colonoscopy with polypectomy PRE-OP DIAGNOSIS: Lower GI bleed TISSUE SUBMITTED: Hepatic flexure polyp MICROSCOPIC DIAGNOSIS Hepatic flexure polyp, polypectomy: Fragments of hyperplastic polyp. Pigment laden macrophages, favor melanosis coli. ASH:carlie 02/05/2023 MICROSCOPIC DESCRIPTION Slides are reviewed. GROSS DESCRIPTION Received in fixative is one container labeled with the patient's name and designated hepatic flexure polyp. The specimen consists of multiple irregular fragments of light pina soft tissue that in aggregate measure 1.0 x 0.7 x 0.1 cm. The specimen is totally submitted in one cassette. / AM:carlie 02/04/2023 TC:1 CPT: 07142
[2023-02-04 03:53] LABS: Absolute Lymphocyte Count 1.96 X10^3/uL (0.83-4.51); Absolute Neutrophil Count 5.5 X10^3/uL (2.0-7.7); Basophil# 0.05 X10^3/uL; Basophil% 0.6 % (0-1); Eosinophil# 0.25 X10^3/uL; Eosinophils% 2.9 % (0-5); Hematocrit 22.7 % (40-54); Hemoglobin 7.4 g/dL (13.0-16.5); Lymphocyte # 1.96 X10^3/ul (0.83-4.51); Lymphocyte % 22.6 % (19-41); Mean Corp Hgb Conc 32.6 g/dL (32-36); Mean Corpuscular Hgb 30.1 pg (27.0-32.0); Mean Corpuscular Volume 92.3 fL (80-94); Mean Platelet Vol. 8.3 fl (6.2-12.0); Monocyte# 0.89 X10^3/uL; Monocyte% 10.3 % (0-10); NRBC Flagged by Analyzer 0 % (0-5); Neutrophil # 5.46 X10^3/uL (2.7-7.7); Platelet Count 277 K/mm3 (150-450); RBC Distribution Width CV 12.1 % (11.6-14.6); RBC Distribution Width SD 41.3 fl (35.1-43.9); Red Blood Count 2.46 M/mm3 (4.6-6.2); White Blood Count 8.7 K/mm3 (4.4-11.0)
[2023-02-04] MEDS: Electrolyte Solution/Peg's 4000 ML 2000 ML PO (03:55)
[2023-02-04 04:02] LABS: International Normalized Ratio 1.2; Prothrombin Time (Protime)PT. 14.9 SECONDS (11.7-14.9)
[2023-02-04 04:07] LABS: Anion Gap 7 (5-15); BUN 17 mg/dL (7-18); BUN/Creat Ratio 26.6 RATIO (10-20); Calcium,Total 7.6 mg/dL (8.5-10.1); Chloride 102 mmol/L (98-107); Creatinine, Serum 0.64 mg/dL (0.70-1.30); EST Glomerular Filtration Rate 132 mL/min (>60); Est Glom Filt Rate - Afr Amer 159 mL/min (>60); Estimated Creatinine Clearance 67.96 ml/min; Glucose 89 mg/dL (74-106); Potassium 3.1 mmol/L (3.5-5.1); Sodium Level 136 mmol/L (136-145)
[2023-02-04] MEDS: Potassium Chloride Oral Tablet 20 MEQ 40 MEQ PO (05:58)
[2023-02-04] MEDS: Potassium Chloride 10mEq/100mL 10 MEQ/100 ML IV.SOLN. 100 MEQ IV BOLUS ×2 (05:59→07:02)
[2023-02-04] MEDS: 0.9% Saline Lock 10 ML Syringe IV (05:59)
[2023-02-04] MEDS: Lactated Ringers 1,000 ML 100 ML IV (08:19)
[2023-02-04 08:48] LABS: Hematocrit 27.8 % (40-54)
[2023-02-04] MEDS: Pantoprazole Sodium 40 MG in 0.9% Normal Saline (100mL MB+) 100 ML 330 MG IV ×2 (10:15→21:03)
[2023-02-04] MEDS: Lactated Ringers 1,000 ML 15 ML IV (11:41)
--- NOTE | 2023-02-04 13:38 | OP.CCLET_ITS ---
02/04/2023 Sudhir Hughes MD [address] [place] [address] Re : Colonoscopy procedure for Dinesh Southker Dear Dr. Hughes This procedure was performed on January. My impressions and recommendations are as follows: Impressions : - Preparation of the colon was fair. - Diverticulosis in the entire examined colon. - Stool in the entire examined colon. - One 9 mm polyp at the hepatic flexure, removed with a hot snare. Resected and retrieved. Recommendations : - Repeat colonoscopy in 6 months for surveillance. - Continue present medications. My findings are described in the full procedure note, which is enclosed. If I can be of further assistance, please feel free to contact me at . Sincerely, Nj Aceves, 02/04/2023 1:37:39 PM This report has been signed electronically.
--- NOTE | 2023-02-04 13:38 | OP.COLON_ITS ---
Patient Name: Dinesh Jeffrey Procedure Date: 02/04/2023 1:07 PM Date of : 1950 Age: 72 Procedure: Colonoscopy Indications: Hematochezia Providers: Nj Aceves DO Medicines: Monitored Anesthesia Care Patient Profile: This is a 72 year old male. Refer to note in patient chart for documentation of history and physical. Last Colonoscopy: none. The patient's first colonoscopy is today. Complications: No immediate complications. Procedure: Pre-Anesthesia Assessment: - Prior to the procedure, a History and Physical was performed, and patient medications and allergies were reviewed. The patient is competent. The risks and benefits of the procedure and the sedation options and risks were discussed with the patient. All questions were answered and informed consent was obtained. Patient identification and proposed procedure were verified by the physician. Mental Status Examination: normal. Prophylactic Antibiotics: The patient does not require prophylactic antibiotics. Prior Anticoagulants: The patient has taken no anticoagulant or antiplatelet agents. After reviewing the risks and benefits, the patient was deemed in satisfactory condition to undergo the procedure. The anesthesia plan was to use monitored anesthesia care (MAC). Immediately prior to administration of medications, the patient was re-assessed for adequacy to receive sedatives. The heart rate, respiratory rate, oxygen saturations, blood pressure, adequacy of pulmonary ventilation, and response to care were monitored throughout the procedure. The physical status of the patient was re-assessed after the procedure. After I obtained informed consent, the scope was passed under direct vision. Throughout the procedure, the patient's blood pressure, pulse, and oxygen saturations were monitored continuously. The colonoscope was introduced through the anus and advanced to the cecum, identified by appendiceal orifice and ileocecal valve. The colonoscopy was performed without difficulty. The patient tolerated the procedure well. The quality of the bowel preparation was fair. The ileocecal valve, appendiceal orifice, and rectum were photographed. Scope In: 1:21:04 PM Scope Withdrawal Time 0 hours 6 minutes 7 seconds Scope Out: 1:34:26 PM Total Procedure Duration Time 0 hours 13 minutes 22 seconds Findings: Multiple small and large-mouthed diverticula were found in the entire colon. Stool was found in the entire colon. A 9 mm polyp was found in the hepatic flexure. The polyp was sessile. The polyp was removed with a hot snare. Resection and retrieval were complete. Verification of patient identification for the specimen was done. Estimated blood loss was minimal. Impression: - Preparation of the colon was fair. - Diverticulosis in the entire examined colon. - Stool in the entire examined colon. - One 9 mm polyp at the hepatic flexure, removed with a hot snare. Resected and retrieved. Recommendation: - Repeat colonoscopy in 6 months for surveillance. - Continue present medications. Procedure Code(s): --- Professional --- 46704, Colonoscopy, flexible; with removal of tumor(s), polyp(s), or other lesion(s) by snare technique CPT copyright 2021 [employer]. All rights reserved. The codes documented in this report are preliminary and upon medical imaging director review may be revised to meet current compliance requirements. Nj Aceves DO 02/04/2023 1:37:39 PM This report has been signed electronically. Number of Addenda: 0 Note Initiated On: 02/04/2023 1:07 PM
--- NOTE | 2023-02-04 14:15 | PN_ITS ---
Subjective Subjective Patient seen and examined. He had no complaints and had an uneventful night. He denied any shortness of breath, palpitations, dizziness, nausea, vomiting or any other symptoms. Review of systems is otherwise negative. Objective Data Objective Data Vital Signs: Vital Signs Temp Pulse Resp BP Pulse Ox O2 Del Method 97.7 F L 70 16 110/61 98 Room Air 02/04/23 13:59 02/04/23 13:59 02/04/23 13:59 02/04/23 13:59 02/04/23 13:59 02/04/23 13:59 Oxygen Delivery Method Room Air Weight: 154 lb 1.65 oz Body Mass Index (BMI) 22.1 Intake & Output: Intake and Output for Last 24 Hours 02/02/23 02/03/23 02/04/23 23:59 23:59 23:59 Intake Total 3186.67 / 3186.67 5380 / 5380 Balance 3186.67 / 3186.67 5380 / 5380 Lab / Micro Data 02/04/23 08:30 02/04/23 03:44 Labs: Laboratory Results - last 24 hr 02/03/23 17:59: WBC 9.2, RBC 3.15 L, Hgb 9.4 L, Hct 29.1 L, MCV 92.4, MCH 29.8, MCHC 32.3, RDW Std Deviation 41.1, RDW Coeff of Terry 12.1, Plt Count 412, MPV 8.8, Immature Gran % (Auto) 0.500, Neut % (Auto) 77.9 H, Lymph % (Auto) 13.4 L, [place] % (Auto) 6.9, Eos % (Auto) 0.8, Baso % (Auto) 0.5, Absolute Neuts (auto) 7.2, Absolute Lymphs (auto) 1.24, Nucleated RBC % 0, Sodium 132 L, Potassium 3.6, Chloride 97 L, Carbon Dioxide 27.0, Anion Gap 8, BUN 22 H, Creatinine 0.99, Estim Creat Clear Calc 69.82, Est GFR (MDRD) Af Amer 96, Est GFR (MDRD) Non-Af 79, BUN/Creatinine Ratio 22.2 H, Glucose 132 H, Calcium 8.4 L, Magnesium 2.0, Total Bilirubin 0.30, AST 10 L, ALT 17, Alkaline Phosphatase 77, Troponin I High Sens 14, Total Protein 5.9 L, Albumin 2.7 L, Globulin 3.2, Albumin/Globulin Ratio 0.8 L, Lipase 18 02/03/23 18:10: Blood Type O POSITIVE, Antibody Screen NEGATIVE, Crossmatch See Detail 02/03/23 19:55: Urine Color Yellow, Urine Clarity Clear, Urine pH 6.0, Ur Specific [place] 1.015, Urine Protein Negative, Urine Glucose (UA) Normal, Urine Ketones Negative, Urine Occult Blood Negative, Urine Nitrite Negative, Urine Bilirubin Negative, Urine Urobilinogen Normal, Ur Leukocyte Esterase 25 H, Urine RBC 0 SEEN, Urine WBC 0-5 SEEN, Ur Squamous Epith Cells 0 SEEN, Urine Bacteria 0 SEEN, Urine Mucus 0 SEEN 02/03/23 20:42: PT 14.8, INR 1.2 02/03/23 23:04: Hgb 9.4 L, Hct 29.1 L 02/04/23 03:44: WBC 8.7, RBC 2.46 L, Hgb 7.4 L, Hct 22.7 L, MCV 92.3, MCH 30.1, MCHC 32.6, RDW Std Deviation 41.3, RDW Coeff of Terry 12.1, Plt Count 277, MPV 8.3, Immature Gran % (Auto) 0.600, Neut % (Auto) 63.0, Lymph % (Auto) 22.6, [place] % (Auto) 10.3 H, Eos % (Auto) 2.9, Baso % (Auto) 0.6, Absolute Neuts (auto) 5.5, Absolute Lymphs (auto) 1.96, Nucleated RBC % 0, PT 14.9, INR 1.2, APTT 30.0, Sodium 136, Potassium 3.1 L, Chloride 102, Carbon Dioxide 27.0, Anion Gap 7, BUN 17, Creatinine 0.64 L, Estim Creat Clear Calc 67.96, Est GFR (MDRD) Af Amer 159, Est GFR (MDRD) Non-Af 132, BUN/Creatinine Ratio 26.6 H, Glucose 89, Calcium 7.6 L 02/04/23 08:30: Hgb 9.0 L, Hct 27.8 L Micro: Microbiology 02/04/23 01:20 Mucosa - Nasopharyngeal Coronavirus COVID-19 PCR - Final SARS-CoV-2 (COVID 19) 02/03/23 Unknown Stool Enteric Bacteriology - Final 02/03/23 Unknown Stool C. 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 Cholelithiasis, no sonographic evidence of acute cholecystitis Retained stool throughout the majority of the colon with scattered colonic diverticula but no CT evidence of acute diverticulitis Fluid distended small bowel loops and ascending colon consistent with diffuse enteritis Electronically Signed: Man Millan MD at 19:53 EDT , Chest X-Ray 02/03/23 18:20 IMPRESSION: No acute pulmonary process Electronically Signed: Man Millan MD at 19:09 EDT , Physical Exam Const alert, oriented x3 and no apparent distress General Appearance: cooperative and well developed HEENT normocephalic, head/scalp atraumatic, moist oral mucous membranes and oropharynx normal Eyes PERRL and EOMs intact bilaterally Neck no lymphadenopathy, supple and no JVD Lymph Lymphatic: no lymphadenopathy noted and no lymphedema noted Resp normal respiratory effort, normal air movement and clear to auscultation bilaterally Cardio regular rate, regular rhythm, S1 normal heart sound, S2 normal heart sound and no murmurs GI normal to inspection, nondistended, normoactive bowel sounds, soft to palpation, non-tender and non-distended Extremity normal capillary refill, no clubbing, cyanosis or edema and no calf tenderness General Extremity: no tenderness to palpation of joints or extremities Skin General Skin Exam: no breakdown Neuro CN's II-XII intact bilaterally, no focal motor deficits, no sensory deficits noted and deep tendon reflexes 2+ bilaterally Motor Exam: strength 5/5 throughout and general weakness Psych thought process normal, cooperative and affect normal Appearance: appropriate Assessment & Plan Assessment/Plan (1) Lower GI bleed: (2) COVID: PLAN: Plan #Acute lower GI bleed * CT abdomen showed fluid filled distended small bowel loops and fluid filled dilated small bowel and ascending colon with no evidence of acute diverticulitis * GI on board. * colonoscopy today shoed diverticulosis and a single polyp at the hepatic flexure which was resected * # Acute blood loss anemia * Hb today is 9. baseline Hb is 14-15/ * transfuse if hb <7 * #COVID 19 infection: asymptomatic. On room air. Will monitor #Hypertension; HCTZ on hold due to dehydration and near syncope. IV hydralazine prn #Potassium: K is 3.1. Will replace and trend. 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
[2023-02-04] MEDS: buPROPion (SR) 150 MG Tablet.SA PO (21:03)
[2023-02-04] MEDS: Tamsulosin HCl 0.4 MG Capsule PO (21:03)
[2023-02-04] MEDS: Haloperidol 5 MG Tablet PO (21:03)
[2023-02-04] MEDS: MELATONIN 10 MG TABLET PO (21:03)
[2023-02-05 04:37] VITALS: BP 94/42; PULSE 75; RESP 16; TEMP 37.3; O2SAT 95
[2023-02-05 07:26] VITALS: O2SAT 98
[2023-02-05 08:50] VITALS: BP 116/61; PULSE 67; RESP 14; TEMP 37.1; O2SAT 97
[2023-02-05] MEDS: buPROPion (SR) 150 MG Tablet.SA PO (09:27)
[2023-02-05] MEDS: Pantoprazole Sodium 40 MG in 0.9% Normal Saline (100mL MB+) 100 ML 330 MG IV (09:27)
[2023-02-05 09:36] LABS: Absolute Lymphocyte Count 1.32 X10^3/uL (0.83-4.51); Basophil# 0.05 X10^3/uL; Basophil% 0.5 % (0-1); Eosinophil# 0.12 X10^3/uL; Eosinophils% 1.1 % (0-5); Hematocrit 27.1 % (40-54); Hemoglobin 8.9 g/dL (13.0-16.5); Lymphocyte # 1.32 X10^3/ul (0.83-4.51); Lymphocyte % 12.6 % (19-41); Mean Corp Hgb Conc 32.8 g/dL (32-36); Mean Corpuscular Hgb 30.4 pg (27.0-32.0); Mean Corpuscular Volume 92.5 fL (80-94); Mean Platelet Vol. 8.6 fl (6.2-12.0); Monocyte# 0.91 X10^3/uL; Monocyte% 8.7 % (0-10); NRBC Flagged by Analyzer 0 % (0-5); Neutrophil # 7.96 X10^3/uL (2.7-7.7); Neutrophil % 76.3 % (47-70); Platelet Count 359 K/mm3 (150-450); RBC Distribution Width CV 13.2 % (11.6-14.6); RBC Distribution Width SD 44.7 fl (35.1-43.9); Red Blood Count 2.93 M/mm3 (4.6-6.2); White Blood Count 10.4 K/mm3 (4.4-11.0)
[2023-02-05 09:50] LABS: Anion Gap 3 (5-15); BUN 10 mg/dL (7-18); BUN/Creat Ratio 11.1 RATIO (10-20); Calcium,Total 8.2 mg/dL (8.5-10.1); Chloride 103 mmol/L (98-107); EST Glomerular Filtration Rate 89 mL/min (>60); Est Glom Filt Rate - Afr Amer 107 mL/min (>60); Estimated Creatinine Clearance 75.51 ml/min; Glucose 119 mg/dL (74-106); Potassium 3.6 mmol/L (3.5-5.1); Sodium Level 137 mmol/L (136-145)
--- NOTE | 2023-02-05 10:10 | CASEMGMT ---
Discharge Planning Updates faxed to [facility] with note of possible return today. Esther Giron, Discharge Planning Asst.
--- NOTE | 2023-02-05 10:40 | CASEMGMT ---
SW spoke with patient. Introduced self and role at [facility]. Patient plans on returning to [facility]. Patient will need transportation back to [place]. Plan: d/c back to [facility]. Jessica ROWE
[2023-02-05 11:31] VITALS: BP 136/76; PULSE 75; RESP 14; TEMP 36.6
--- NOTE | 2023-02-05 11:31 | DCINST_ITS ---
Discharge Instructions Diet Discharge Diet: Low fat / Low cholesterol (high fiber diet) Activity Discharge Activity: Return to Normal Activity Weight Bearing Status: Weight bearing as tolerated Dressing / Incision Call your doctor if you observe: Fever of 101 or Higher, Shortness of breath, Dizziness, Swelling in the ankles, Chest pain and Increased palpitations (irregular heartbeat) Follow Up Care Test Results: Test results from this visit will be discussed in further detail at your follow- up appointment, if applicable. Discharge Plan Admission Admit Date/Time: 02/03/23 20:09 Primary Reason for Your Visit: GI bleed due to diverticulosis Attending Provider: Keyla Virk Primary Care Provider: Sudhir Hughes [employer] Providers: Dejan Johnson Instructions Patient Instructions: ED Diverticulosis Discharge Orders/Prescriptions Prescriptions: Continued sennosides-docusate sodium [Senna Plus] 8.6-50 mg tablet 1 tab-cap PO BID acetaminophen 500 mg tablet 1,000 mg PO BID PRN (Reason: fever or pain) bupropion HCl 150 mg tablet sustained-release 12 hr 150 mg PO BID hydrochlorothiazide 25 mg tablet 25 mg PO DAILY polyethylene glycol 3350 17 gram powder in packet 17 g PO DAILY haloperidol 5 mg tablet 5 mg PO QHS tamsulosin 0.4 mg capsule 0.4 mg PO QHS melatonin 10 mg tablet 10 mg PO QHS Discontinued celecoxib 100 mg capsule 100 mg PO Q12H Referrals / Follow Up: Sudhir Hughes Chi, MD [Primary Care Provider] - Within 2 Weeks Disposition Disposition (needs filled in before D/C Order can be placed): Assisted Living
--- NOTE | 2023-02-05 11:36 | PCM.DC.SUM ---
Providers Date of Admission: 02/03/23 Date of Discharge: 02/05/23 Primary Care Physician: Dr. Sudhir Hughes MD Consultations 02/03/23 21:27 Consult: Gastroenterology Routine Consulting Provider: [facility] Reason for Consult: GI bleed EMERGENT Consult: No MD Notified: Yes Date Notified: 02/03/23 Time Notified: 20:16 Method of Notification: ED Physician Initiated Reason For Visit: GI BLEED, RECTAL Diagnosis Discharge Diagnosis (1) Lower GI bleed: Status: Acute Code(s): K92.2 - Gastrointestinal hemorrhage, unspecified (2) COVID: Status: Acute Code(s): U07.1 - COVID-19 Plan #Acute lower GI bleed CT abdomen showed fluid filled distended small bowel loops and fluid filled dilated small bowel and ascending colon with no evidence of acute diverticulitis GI on board. colonoscopy today shoed diverticulosis and a single polyp at the hepatic flexure which was resected # Acute blood loss anemia Hb today is 9. baseline Hb is 14-15/ transfuse if hb <7 #COVID 19 infection: asymptomatic. On room air. Will monitor #Hypertension; HCTZ on hold due to dehydration and near syncope. IV hydralazine prn #Potassium: K is 3.1. Will replace and trend. 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 #paranoid schizophrenia: on haldol DVT prophylaxis; SCDs Medications at Discharge Home Medications bupropion HCl 150 mg tablet,12 hr sustained-release 150 mg PO BID 09/25/22 hydrochlorothiazide 25 mg tablet 25 mg PO DAILY 09/25/22 polyethylene glycol 3350 17 gram oral powder packet 17 g PO DAILY 09/25/22 acetaminophen 500 mg tablet 1,000 mg PO BID PRN fever or pain 10/14/22 haloperidol 5 mg tablet 5 mg PO QHS 10/14/22 sennosides 8.6 mg-docusate sodium 50 mg tablet (Senna Plus) 1 tab-cap PO BID 10/14/22 melatonin 10 mg tablet 10 mg PO QHS insomnia 02/03/23 tamsulosin 0.4 mg capsule 0.4 mg PO QHS 02/03/23 Hospital Course Operations None Procedures Colonoscopy Summary of Care Provided Minutes Spent on Discharge: 55 Hospital Course: Patient is a 72-year-old male with a past medical history as outlined was admitted from assisted living facility on 02/03/2023 with a complaint of dizziness and near syncope as well as rectal bleeding. He had been having the dark stools for about 3 days prior to admission and subsequently started having jimy rectal bleeding. He had not had such issues in the past. He had felt dizzy and lightheaded whilst he was having this rectal bleed. He denied any nausea or vomiting. He was then brought into the ED. He had tested positive in his facility. CT of the abdomen and pelvis showed fluid-filled dilated small bowel and ascending colon with evidence of scattered colonic diverticula but no evidence of acute diverticulitis. He was admitted and managed for rectal bleeding. COVID test was positive though he was asymptomatic and remained on room air. Hemoglobin was 9.4 with a baseline of around 14. Patient had colonoscopy after general surgery was consulted and it showed diverticulosis with no active bleeding. Rectal bleeding did not occur during this admission and patient remained stable. He was discharged back to his assisted living facility on 02/05/2023. He was counseled to take high-fiber diet. He is to follow-up with his primary care doctor within 1 to 2 weeks. He is also to follow-up with gastroenterology on outpatient basis. Patient seen and examined prior to discharge. He felt well and had no complaints. He had an uneventful night and review of systems otherwise negative. Labs and vitals reviewed. Home medication reviewed and reconciled. Physical Exam Const alert, oriented x3 and no apparent distress General Appearance: cooperative, comfortable and well developed HEENT normocephalic, head/scalp atraumatic, hearing grossly normal bilaterally, moist oral mucous membranes and oropharynx normal Mouth: oral and palatal mucosa normal Eyes PERRL, EOMs intact bilaterally and conjunctivae normal Neck no lymphadenopathy, supple and no JVD Lymph Lymphatic: no lymphadenopathy noted and no lymphedema noted Resp normal respiratory effort, normal air movement, no use of accessory muscles and clear to auscultation bilaterally Cardio regular rate, regular rhythm, S1 normal heart sound, S2 normal heart sound and no murmurs GI normal to inspection, nondistended, normoactive bowel sounds, soft to palpation, non-tender and non-distended Extremity normal to inspection, full ROM, normal capillary refill, no clubbing, cyanosis or edema and no calf tenderness General Extremity: no tenderness to palpation of joints or extremities Skin no rashes or lesions noted General Skin Exam: no breakdown Neuro oriented x3, CN's II-XII intact bilaterally, moves all extremities, no focal motor deficits, no sensory deficits noted and deep tendon reflexes 2+ bilaterally Motor Exam: strength 5/5 throughout and general weakness Psych thought process normal, cooperative and affect normal Appearance: appropriate Weight / BMI Weight Weight: 154 lb 1.65 oz Body Mass Index (BMI) 22.1 ABG / Lab / Microbiology Data 02/05/23 09:15 02/05/23 09:15 Laboratory: Laboratory Results - last 24 hr 02/05/23 09:15: WBC 10.4, RBC 2.93 L, Hgb 8.9 L, Hct 27.1 L, MCV 92.5, MCH 30.4, MCHC 32.8, RDW Std Deviation 44.7 H, RDW Coeff of Terry 13.2, Plt Count 359, MPV 8.6, Immature Gran % (Auto) 0.800, Neut % (Auto) 76.3 H, Lymph % (Auto) 12.6 L, [place] % (Auto) 8.7, Eos % (Auto) 1.1, Baso % (Auto) 0.5, Absolute Neuts (auto) 8.0 H, Absolute Lymphs (auto) 1.32, Nucleated RBC % 0, Sodium 137, Potassium 3.6, Chloride 103, Carbon Dioxide 31.0, Anion Gap 3 L, BUN 10, Creatinine 0.90, Estim Creat Clear Calc 75.51, Est GFR (MDRD) Af Amer 107, Est GFR (MDRD) Non-Af 89, BUN/Creatinine Ratio 11.1, Glucose 119 H, Calcium 8.2 L Microbiology: Microbiology 02/04/23 01:20 Mucosa - Nasopharyngeal Coronavirus COVID-19 PCR - Final SARS-CoV-2 (COVID 19) 02/03/23 Unknown Stool Enteric Bacteriology - Final 02/03/23 Unknown Stool C. difficile DNA Amplification - Final D/C Instructions Discharge Diet: Low fat / Low cholesterol (high fiber diet) Discharge Activity: Return to Normal Activity Weight Bearing Status: Weight bearing as tolerated Call your doctor if you observe: Fever of 101 or Higher, Shortness of breath, Dizziness, Swelling in the ankles, Chest pain and Increased palpitations (irregular heartbeat) Meaningful Use Info Meaningful Use Diagnoses (Choose all that apply): None applicable Discharge Plan Admission Admit Date/Time: 02/03/23 20:09 Primary Reason for Your Visit: GI bleed due to diverticulosis Attending Provider: Keyla Virk Primary Care Provider: Sudhir Hughes Chi Consulting Providers: Dejan Johnson Instructions Patient Instructions: ED Diverticulosis Discharge Orders/Prescriptions Prescriptions: Continued sennosides-docusate sodium [Senna Plus] 8.6-50 mg tablet 1 tab-cap PO BID acetaminophen 500 mg tablet 1,000 mg PO BID PRN (Reason: fever or pain) bupropion HCl 150 mg tablet sustained-release 12 hr 150 mg PO BID hydrochlorothiazide 25 mg tablet 25 mg PO DAILY polyethylene glycol 3350 17 gram powder in packet 17 g PO DAILY haloperidol 5 mg tablet 5 mg PO QHS tamsulosin 0.4 mg capsule 0.4 mg PO QHS melatonin 10 mg tablet 10 mg PO QHS Discontinued celecoxib 100 mg capsule 100 mg PO Q12H Referrals / Follow Up: Sudhir Hughes Chi, MD [Primary Care Provider] - Within 2 Weeks Disposition Disposition (needs filled in before D/C Order can be placed): Assisted Living Charges/Coding Visit Charges Inpatient E&M: 16486 Disch Hosp >30min
--- NOTE | 2023-02-05 12:09 | CASEMGMT ---
Discharge Planning Discharge instructions faxed to [facility]. Phone call also placed. [facility] will transport patient by wheelchair at 1p. Nursing and SW updated. Nursing to update patient. Call placed x2 to patients emergency contact with no answer nor option to leave message. Esther Giron, Discharge Planning Asst.
== END 2023-02-05 13:14 | disposition home or self-care (01) | DRG 377 ==
LOC: ED 20:16 → PCU 20:32
PROVIDERS: Anesthesiology; Internal Medicine Gastroenterology; Admitting Provider Internal Medicine; Emergency Provider Student in an Organized Health Care Education/Training Program; PCP Family Medicine Geriatric Medicine; Visit Provider Student in an Organized Health Care Education/Training Program
PROC: 0DJD8ZZ Inspection of Lower Intestinal Tract, Via Natural or Artificial Opening Endoscopic (ICD-10-PCS; CPT 45378; principal; 2023-02-04 12:55)
DX: K57.31 Diverticulosis of large intestine without perforation or abscess with bleeding (principal); U07.1 COVID-19; F20.0 Paranoid schizophrenia; D62 Acute posthemorrhagic anemia; I10 Essential (primary) hypertension; F17.210 Nicotine dependence, cigarettes, uncomplicated; E78.2 Mixed hyperlipidemia; K63.5 Polyp of colon; M47.812 Spondylosis without myelopathy or radiculopathy, cervical region; N40.0 Benign prostatic hyperplasia without lower urinary tract symptoms; Z66 Do not resuscitate; Z79.899 Other long term (current) drug therapy
CPT/HCPCS: 36415; 71045; 74177; 80048; 80053; 81001; 83690; 83735; 84484; 85014; 85018; 85025; 85610; 85730; 86850; 86900; 86901; 86920; 87493; 87506; 87635; 88305; 93005; 94668; 97161; 97166; 99285; 99406; J7120; P9016; Q9967; A4216; J2405

== ENCOUNTER 2023-02-06 11:10 | Inpatient (IN) | payer MEDICARE, MEDICAID, SELFPAY ==
[2023-02-06] VITALS (21 sets, daily range): BP systolic 93–146; BP diastolic 58–82; PULSE 66–96; RESP 14–23; TEMP 35.5–36.8; O2SAT 94–100; BMI 23.8; BMI 23.7
--- NOTE | 2023-02-06 11:24 | ED.VIS.GI ---
HPI HPI - GI History of Present Illness Chief Complaint: GI Bleed Informant: patient Abdominal Pain/Flank Pain Onset: Today Context: Gradual Onset Timing: Intermittent Nausea/Vomiting/Emesis GI Symptom: Negative for Nausea or Vomiting Diarrhea/Melena/Hematochezia GI Symptom: Positive for Melena; Negative for Diarrhea Associated Symptoms Associated Symptoms: Negative for Dysuria, Frequency, Hematuria or Urgency Narrative Narrative: 72-year-old male history of schizophrenia, hypertension and recently admitted to the hospital and discharged yesterday for lower GI bleed. During his hospitalization he did require transfusion. Patient states he believes he had a polypectomy done. Said this morning he had dark-colored blood per rectum. He denies any hematemesis. No blood thinners. Denies any abdominal pain. Prior similar symptoms: Yes Recent Illness/Hospitalization: Yes PFSH PFSH Medical History Abnormal EKG Essential hypertension Mixed hyperlipidemia Paranoid schizophrenia Home Medications bupropion HCl 150 mg tablet,12 hr sustained-release 150 mg PO BID 09/25/22 [History Last Taken 02/06/23] hydrochlorothiazide 25 mg tablet 25 mg PO DAILY 09/25/22 [History Last Taken 02/06/23] acetaminophen 500 mg tablet 1,000 mg PO BID PRN fever or pain 10/14/22 [History Last Taken Unknown] haloperidol 5 mg tablet 5 mg PO QHS 10/14/22 [History Last Taken 02/05/23] sennosides 8.6 mg-docusate sodium 50 mg tablet (Senna Plus) 1 tab-cap PO BID 10/14/22 [History Last Taken 02/06/23] tamsulosin 0.4 mg capsule 0.4 mg PO QHS 02/03/23 [History Last Taken 02/05/23] Allergy/AdvReac Type Severity Reaction Status Date / Time lisinopril Allergy Unknown Unknown Verified 02/03/23 21:59 Family History Father Cancer Surgical History History of tonsillectomy Social History Smoking Status: Current every day smoker tobacco type: cigarettes how long ago did patient quit smokin year ago alcohol intake: never substance use type: does not use caffeine: No ROS ROS ED ROS Narrative Dark blood per rectum. No recent illness. Review of Systems ROS Unobtainable: Denies due to encephalopathy Constitutional Constitutional ED: Denies chills or fever(s) ENT ENT ED: Denies ear pain Cardiovascular Cardiovascular: Denies chest pain Respiratory/Chest Respiratory/Chest: Denies cough Gastrointestinal Gastrointestinal: Reports melena; Denies abdominal pain, constipation, diarrhea, nausea or vomiting Genitourinary Genitourinary ED: Denies dysuria or hematuria Musculoskeletal Musculoskeletal: Denies arthralgias Integumentary Denies abscess Neurologic Neurologic: Denies headache(s) Psychiatric Psychiatric: Denies anxiety Endocrine Endocrinology: Denies polydipsia Hematologic/Lymphatic Hematologic/Lymphatic: Denies easy bleeding Allergic/Immunologic Allergic/Immunologic ED: Denies mouth swelling or tongue swelling EXAM Physical Exam Narrative Exam Narrative: 72-year-old male initial blood pressure was low at 95/59. Otherwise he is stable. He is sitting upright in bed. He is afebrile. H EENT exam moist mucous membranes. Poor dentition. Pupils round reactive light. No trauma. Lungs clear equal symmetrical. Heart regular rhythm rate about 75 no murmur. Chest wall and ribs nontender. Abdomen soft nontender. Back unremarkable. Moving all 4 extremities. Nontender no edema. He is awake and alert. Const Vital Signs: 02/06/23 11:13 02/06/23 11:17 02/06/23 11:52 Temperature 97.6 F L Temperature Source Temporal Pulse Rate 74 Respiratory Rate 16 Blood Pressure 95/59 L 93/58 L Blood Pressure Mean 71 69 Pulse Ox 100 Oxygen Delivery Method Room Air Positive well nourished and well developed; Negative for obese, cachectic, contractures or unkempt General Appearance ED: well developed and NAD; Negative for unkempt, cachectic, contractures or pallor Nutritional Appearance: Negative for cachectic or obese HEENT Reports moist mucous membranes normocephalic and atraumatic; Negative for trauma or tenderness Eyes PERRL and EOMs intact bilaterally General Eye ED: Negative for pale conjunctiva or scleral icterus Neck no lymphadenopathy, supple and no JVD General: Negative for tenderness Carotids: Negative for other Lymph Lymphatic: Negative for other Resp normal respiratory effort and clear to auscultation bilaterally Effort and Inspection: Negative for respiratory distress Auscultation: Negative for rales, rhonchi or wheezes Cardio regular rate, regular rhythm, S1 normal heart sound, S2 normal heart sound and no murmurs Rate: Negative for bradycardia or tachycardic Rhythm: Negative for abnormal rhythm GI non-tender, non-distended and no masses Inspection: Negative for abdominal distention Auscultation: normoactive bowel sounds Palpation: soft; Negative for tender, guarding or rigid Back/Spine no CVA tenderness General Back: Negative for CVA tenderness Cervical Spine: Negative for cervical spine tenderness Thoracic Spine / Upper Back: Negative for thoracic spinal tenderness Lumbar Spine / Lower Back: Negative for lumbar spinal tenderness Coccyx: Negative for other Extremity full ROM General Extremety ED: Negative for edema or tenderness General Extremity: Negative for edema Neuro CN's II-XII intact bilaterally and moves all extremities Sensorium / Orientation: alert, oriented to person, oriented to place and oriented to time; Negative for orientation impaired Motor Exam: strength 5/5 throughout Psych mental status grossly normal and thought process normal Appearance: Negative for unkempt Attitude: No agitated Mood & Affect: Negative for depressed, anxious or tearful Skin no wounds General Skin Exam: Negative for jaundice or pallor Lesions: no lesions Rashes: no rashes Trauma: Negative for abrasion Nails: Negative for discolored MDM MDM MDM Narrative Medical decision making narrative: 72-year-old male recent hospital admission and discharge for lower GI bleed. Reportedly had a polypectomy and a diagnostic colonoscopy. Patient was transfused blood when he was in the hospital. Presents today with additional rectal bleeding dark in nature. Denies any hematemesis. He is also hypotensive. Patient be treated with half a liter normal saline. Typed and screened. Screening labs. Hemoglobin returned 6.5 yesterday was discharged in the hospital was 8.9. He will be transfused 2 units of blood. I have both the hospitalist on page for admission and Dr. Aceves who scoped the patient recently to make him aware. History & Record Review Discussion w/independent historian: Patient Additional record(s) reviewed:: Prior inpatient record, Prior outpatient record and Prior labs Lab Data Attestation: I reviewed the patient's lab results. Lab results narrative: CBC shows a white count 10.8 H&H is 6.5 and 20.2. When he is discharged in the hospital his hemoglobin was 8.9 yesterday. So he is down 3 units of blood. Type and screen has been changed to a type and cross I am ordering 4 units to be typed and cross and be transferred fused 2 units. Platelet count is 292. Chemistries showed a gap of 7. Normal BUN 13 creatinine 0.7. Glucose 124. Labs: Laboratory Results - last 24 hr 02/06/23 11:31 WBC 10.8 RBC 2.19 L Hgb 6.5 L Hct 20.2 L MCV 92.2 MCH 29.7 MCHC 32.2 RDW Std Deviation 43.8 RDW Coeff of Terry 13.1 Plt Count 292 MPV 8.5 Immature Gran % (Auto) 0.900 Neut % (Auto) 72.0 H Lymph % (Auto) 13.7 L [place] % (Auto) 10.3 H Eos % (Auto) 2.5 Baso % (Auto) 0.6 Absolute Neuts (auto) 7.8 H Absolute Lymphs (auto) 1.48 Nucleated RBC % 0 Sodium 141 Potassium 3.5 Chloride 105 Carbon Dioxide 29.0 Anion Gap 7 BUN 13 Creatinine 0.77 Estim Creat Clear Calc 70.97 Est GFR (MDRD) Af Amer 128 Est GFR (MDRD) Non-Af 105 BUN/Creatinine Ratio 16.8 Glucose 124 H Calcium 7.6 L Total Bilirubin 0.20 AST 11 L ALT 12 L Alkaline Phosphatase 56 Total Protein 4.8 L Albumin 2.3 L Globulin 2.5 Albumin/Globulin Ratio 0.9 Blood Type O POSITIVE Antibody Screen NEGATIVE Crossmatch See Detail Critical Care Time Critical Care Time: Yes Critical care time (excluding procedures): 30-74 minutes, Including time spent:, Discussing w/Patient &/or Family/Senior Mechanical Development Engineer, Discussing w/Consultants, Arranging Admission or Transfer, Performing Direct Patient Care at Bedside and - (35 minutes.) Discharge Plan Dx/Rx/DC Orders Clinical Impression: Transfusion of blood during current hospitalisation, Acute hypotension, Anemia, Acute lower gastrointestinal bleeding, History of schizophrenia Disposition Disposition: [facility] Discharge Date/Time: 02/06/23 12:43
[2023-02-06] MEDS: 0.9% Normal Saline (500mL Bag) 500 ML 1000 ML IV (11:37)
[2023-02-06 11:38] LABS: Absolute Lymphocyte Count 1.48 X10^3/uL (0.83-4.51); Absolute Neutrophil Count 7.8 X10^3/uL (2.0-7.7); Basophil# 0.06 X10^3/uL; Basophil% 0.6 % (0-1); Eosinophil# 0.27 X10^3/uL; Eosinophils% 2.5 % (0-5); Hematocrit 20.2 % (40-54); Hemoglobin 6.5 g/dL (13.0-16.5); Lymphocyte # 1.48 X10^3/ul (0.83-4.51); Lymphocyte % 13.7 % (19-41); Mean Corp Hgb Conc 32.2 g/dL (32-36); Mean Corpuscular Hgb 29.7 pg (27.0-32.0); Mean Corpuscular Volume 92.2 fL (80-94); Mean Platelet Vol. 8.5 fl (6.2-12.0); Monocyte# 1.11 X10^3/uL; Monocyte% 10.3 % (0-10); NRBC Flagged by Analyzer 0 % (0-5); Neutrophil # 7.75 X10^3/uL (2.7-7.7); Platelet Count 292 K/mm3 (150-450); RBC Distribution Width CV 13.1 % (11.6-14.6); RBC Distribution Width SD 43.8 fl (35.1-43.9); Red Blood Count 2.19 M/mm3 (4.6-6.2); White Blood Count 10.8 K/mm3 (4.4-11.0)
--- NOTE | 2023-02-06 11:51 | NURSING ---
attempted to call pt's next of kin but no answer. seth mariaelena called and informed of readmit.
[2023-02-06 11:54] LABS: ALB/GLOB Ratio 0.9 RATIO (0.9-2.4); AST(SGOT) 11 U/L (15-37); Alanine Aminotransfer ALT/SGPT 12 U/L (16-61); Albumin, Serum 2.3 g/dL (3.2-5.0); Alkaline Phosphatase 56 U/L (45-117); Anion Gap 7 (5-15); BUN 13 mg/dL (7-18); BUN/Creat Ratio 16.8 RATIO (10-20); Calcium,Total 7.6 mg/dL (8.5-10.1); Chloride 105 mmol/L (98-107); Creatinine, Serum 0.77 mg/dL (0.70-1.30); EST Glomerular Filtration Rate 105 mL/min (>60); Est Glom Filt Rate - Afr Amer 128 mL/min (>60); Estimated Creatinine Clearance 70.97 ml/min; Globulin 2.5 g/dL (2.2-4.2); Glucose 124 mg/dL (74-106); Potassium 3.5 mmol/L (3.5-5.1); Protein, Total 4.8 g/dL (6.4-8.2); Sodium Level 141 mmol/L (136-145)
--- NOTE | 2023-02-06 12:03 | PCM.HP.STD ---
HPI - General General Date of Admission: 02/06/23 HPI Narrative HALI LEDEZMA, is a 72 M who presents [facility] Medical History Abnormal EKG Essential hypertension Mixed hyperlipidemia Paranoid schizophrenia Home Medications bupropion HCl 150 mg tablet,12 hr sustained-release 150 mg PO BID 09/25/22 [History Last Taken 02/06/23] hydrochlorothiazide 25 mg tablet 25 mg PO DAILY 09/25/22 [History Last Taken 02/06/23] acetaminophen 500 mg tablet 1,000 mg PO BID PRN fever or pain 10/14/22 [History Last Taken Unknown] haloperidol 5 mg tablet 5 mg PO QHS 10/14/22 [History Last Taken 02/05/23] sennosides 8.6 mg-docusate sodium 50 mg tablet (Senna Plus) 1 tab-cap PO BID 10/14/22 [History Last Taken 02/06/23] tamsulosin 0.4 mg capsule 0.4 mg PO QHS 02/03/23 [History Last Taken 02/05/23] Allergy/AdvReac Type Severity Reaction Status Date / Time lisinopril Allergy Unknown Unknown Verified 02/03/23 21:59 Family History Father Cancer Surgical History History of tonsillectomy Social History Smoking Status: Current every day smoker tobacco type: cigarettes how long ago did patient quit smokin year ago alcohol intake: never substance use type: does not use caffeine: No Vital Signs Vital Signs Vital Signs: 02/06/23 11:13 02/06/23 11:17 02/06/23 11:52 Temperature 97.6 F L Temperature Source Temporal Pulse Rate 74 Respiratory Rate 16 Blood Pressure 95/59 L 93/58 L Blood Pressure Mean 71 69 Pulse Ox 100 Oxygen Delivery Method Room Air Weight Weight: 75.206 kg Body Mass Index (BMI) 23.8 Results Lab / Micro Data 02/06/23 11:31 02/06/23 11:31 Labs: Laboratory Results - last 24 hr 02/06/23 11:31: WBC 10.8, RBC 2.19 L, Hgb 6.5 L, Hct 20.2 L, MCV 92.2, MCH 29.7, MCHC 32.2, RDW Std Deviation 43.8, RDW Coeff of Terry 13.1, Plt Count 292, MPV 8.5, Immature Gran % (Auto) 0.900, Neut % (Auto) 72.0 H, Lymph % (Auto) 13.7 L, [place] % (Auto) 10.3 H, Eos % (Auto) 2.5, Baso % (Auto) 0.6, Absolute Neuts (auto) 7.8 H, Absolute Lymphs (auto) 1.48, Nucleated RBC % 0, Sodium 141, Potassium 3.5, Chloride 105, Carbon Dioxide 29.0, Anion Gap 7, BUN 13, Creatinine 0.77, Estim Creat Clear Calc 70.97, Est GFR (MDRD) Af Amer 128, Est GFR (MDRD) Non-Af 105, BUN/Creatinine Ratio 16.8, Glucose 124 H, Calcium 7.6 L, Total Bilirubin 0.20, AST 11 L, ALT 12 L, Alkaline Phosphatase 56, Total Protein 4.8 L, Albumin 2.3 L, Globulin 2.5, Albumin/Globulin Ratio 0.9 Assessment & Plan Assessment/Plan (1) Acute lower gastrointestinal bleeding: PLAN: Plan GI bleed?lower. GI consult. Transfuse as needed. Fluid resuscitation. Hypertension?IV fluids and transfusion. Patient is a 72-year-old male with history of hypertension, BPH, paranoid schizophrenia and recent admission for lower GI bleed who presented to [facility] ED on 02/06/2023 with recurrent GI bleed. 1. Lower GI bleed, acute blood loss anemia on chronic anemia Patient was recently hospitalized from 02/03 to 02/05 for lower GI bleed. S/p colonoscopy with Dr. Aceves on 02/04 that showed diverticulosis of the entire examined colon, one 9 mm polyp at hepatic flexure that was removed with hot snare. Baseline hemoglobin prior to that admission was noted to be around 14-15, was down to 9.4 then. Hemoglobin remained stable around 9 during admission, did not require any blood transfusions. Hemoglobin 6.5 on admission on 02/06. Patient reported a few episodes of dark-colored stool on morning of admission. Also mildly hypotensive on admission. ? Admit under inpatient status to PCU. Gastroenterology consulted. N.p.o. We will transfuse 2 units of packed red blood cells, repeat hemoglobin afterward. IV fluid resuscitation for mild hypotension as noted below. 2. Mild hypotension Secondary to volume loss from GI bleed as noted above. Blood pressure 90s over 50s on admission. Patient with good mentation, denied any lightheadedness or dizziness with ambulation. ? Given 1 L normal saline bolus in the ED. Monitor BP after 2 units of blood given. Can give further fluid resuscitation as needed. Hold home hydrochlorothiazide and Flomax for now. Chronic medical conditions: ? Paranoid schizophrenia: Continue home bupropion and Haldol. ? BPH: Holding home Flomax due to hypotension as noted above. DVT prophylaxis: SCDs CODE STATUS: DNR CCA, DO NOT INTUBATE Expected disposition: Home, 2 to 3 days Total clinical time spent by myself addressing the patient's medical issues, reviewing all the data, and collaborating with patient's care team: 55 minutes. Charges/Coding Visit Charges Inpatient E&M: 82758 Init Hosp L2
--- NOTE | 2023-02-06 16:57 | EX.PCM.CON.G ---
HPI Consult Data Date of Consult: 02/06/23 HPI Narrative Reason for Consultation: GI bleed HPI Narrative: HALI LEDEZMA, is a 72 M who presents to the hospital with lower GI bleed after recently being in the hospital for lower GI bleed. He was admitted from assisted living facility on 02/03/2023 with a complaint of dizziness and near syncope as well as rectal bleeding. He had been having the dark stools for about 3 days prior to admission and subsequently started having jimy rectal bleeding. He had not had such issues in the past. He had felt dizzy and lightheaded whilst he was having this rectal bleed. He denied any nausea or vomiting. He was then brought into the ED. He had tested positive in his facility. CT of the abdomen and pelvis showed fluid-filled dilated small bowel and ascending colon with evidence of scattered colonic diverticula but no evidence of acute diverticulitis. He was admitted and managed for rectal bleeding. COVID test was positive though he was asymptomatic and remained on room air. Hemoglobin was 9.4 with a baseline of around 14. Patient had colonoscopy after it showed diverticulosis with no active bleeding. There was one hepatic flexure polyp removed during the procedure. Rectal bleeding did not reoccur during this admission and patient remained stable. He was discharged back to his assisted living facility on 02/05/2023. He was counseled to take high-fiber diet. He is to follow-up with his primary care doctor within 1 to 2 weeks. When he left the hospital yesterday his hemoglobin is 8.4 and he comes back today with hemoglobin 8.6. [facility] Medical History Abnormal EKG Essential hypertension Mixed hyperlipidemia Paranoid schizophrenia Home Medications bupropion HCl 150 mg tablet,12 hr sustained-release 150 mg PO BID 09/25/22 [History Last Taken 02/06/23] hydrochlorothiazide 25 mg tablet 25 mg PO DAILY 09/25/22 [History Last Taken 02/06/23] acetaminophen 500 mg tablet 1,000 mg PO BID PRN fever or pain 10/14/22 [History Last Taken Unknown] haloperidol 5 mg tablet 5 mg PO QHS 10/14/22 [History Last Taken 02/05/23] sennosides 8.6 mg-docusate sodium 50 mg tablet (Senna Plus) 1 tab-cap PO BID 10/14/22 [History Last Taken 02/06/23] tamsulosin 0.4 mg capsule 0.4 mg PO QHS 02/03/23 [History Last Taken 02/05/23] Allergy/AdvReac Type Severity Reaction Status Date / Time lisinopril Allergy Unknown Unknown Verified 02/03/23 21:59 Family History Father Cancer Surgical History History of tonsillectomy Social History Smoking Status: Current every day smoker tobacco type: cigarettes how long ago did patient quit smokin year ago alcohol intake: never substance use type: does not use caffeine: No ROS ROS Narrative Constitutional: Reports fatigue and weakness. No fever. HEENT: Reports systems reviewed and no addt'l complaints, except as documented Respiratory/Chest: No acute shortness of breath or respiratory distress or wheezing. CVS: No chest pain tightness or pressure. Gastrointestinal: No abdominal pain. Rest as described in HPI. No hematemesis or vomiting. Genitourinary: Denies burning urination or new urinary tract symptoms Musculoskeletal: Chronic C-spine arthritis. On celecoxib. Denies acute joint pain or limited range of motion. No acute injury Neurologic: Denies seizure-like symptoms. Psychiatric: History of paranoid schizophrenia. On antidepressant medication. skin: No ulcer. No rash Endocrinology: Reports systems reviewed and no addt'l complaints, except as documented Hematologic/Lymphatic: Reports systems reviewed and no addt'l complaints, except as documented Rest 14 ROS are negative except as mentioned in HPI Physical Exam Const alert, oriented x3 and no apparent distress General Appearance: cooperative, comfortable and well developed HEENT normocephalic, head/scalp atraumatic, hearing grossly normal bilaterally, moist oral mucous membranes and oropharynx normal Mouth: oral and palatal mucosa normal Eyes PERRL, EOMs intact bilaterally and conjunctivae normal Neck no lymphadenopathy, supple and no JVD Lymph Lymphatic: no lymphadenopathy noted and no lymphedema noted Resp normal respiratory effort, normal air movement, no use of accessory muscles and clear to auscultation bilaterally Cardio regular rate, regular rhythm, S1 normal heart sound, S2 normal heart sound and no murmurs GI normal to inspection, nondistended, normoactive bowel sounds, soft to palpation, non-tender and non-distended Extremity normal to inspection, full ROM, normal capillary refill, no clubbing, cyanosis or edema and no calf tenderness General Extremity: no tenderness to palpation of joints or extremities Skin no rashes or lesions noted General Skin Exam: no breakdown Neuro oriented x3, CN's II-XII intact bilaterally, moves all extremities, no focal motor deficits, no sensory deficits noted and deep tendon reflexes 2+ bilaterally Motor Exam: strength 5/5 throughout and general weakness Psych thought process normal, cooperative and affect normal Appearance: appropriate Lab / Micro Data 02/06/23 11:31 02/06/23 11:31 Labs: Laboratory Results - last 24 hr 02/06/23 11:31: WBC 10.8, RBC 2.19 L, Hgb 6.5 L, Hct 20.2 L, MCV 92.2, MCH 29.7, MCHC 32.2, RDW Std Deviation 43.8, RDW Coeff of Terry 13.1, Plt Count 292, MPV 8.5, Immature Gran % (Auto) 0.900, Neut % (Auto) 72.0 H, Lymph % (Auto) 13.7 L, Arroyo % (Auto) 10.3 H, Eos % (Auto) 2.5, Baso % (Auto) 0.6, Absolute Neuts (auto) 7.8 H, Absolute Lymphs (auto) 1.48, Nucleated RBC % 0, Sodium 141, Potassium 3.5, Chloride 105, Carbon Dioxide 29.0, Anion Gap 7, BUN 13, Creatinine 0.77, Estim Creat Clear Calc 70.97, Est GFR (MDRD) Af Amer 128, Est GFR (MDRD) Non-Af 105, BUN/Creatinine Ratio 16.8, Glucose 124 H, Calcium 7.6 L, Total Bilirubin 0.20, AST 11 L, ALT 12 L, Alkaline Phosphatase 56, Total Protein 4.8 L, Albumin 2.3 L, Globulin 2.5, Albumin/Globulin Ratio 0.9, Blood Type O POSITIVE, Antibody Screen NEGATIVE, Crossmatch See Detail Assessment & Plan Assessment/Plan (1) Acute lower gastrointestinal bleeding: PLAN: Plan 72-year-old gentleman known to GI service with history of schizophrenia, severe diverticular disease and recent adenomatous polyp that was removed. He presents with lower GI bleed. Lower GI bleed- the differential diagnosis includes post polypectomy bleed at the hepatic flexure polyp site. Also different diagnosis is recurrent diverticular bleeding. He will undergo colonoscopy tomorrow. He was explained alternatives, benefits, risks including not withstanding bleeding, infection, sepsis, perforation, need for emergent urgent . Have an ASA of 3.. Charges/Coding Visit Charges Inpatient E&M: 78365 Init Hosp L3
[2023-02-06] MEDS: Bisacodyl 5 MG Tablet 20 MG PO (17:55)
[2023-02-06] MEDS: Electrolyte Solution/Peg's 4000 ML PO (17:56)
--- NOTE | 2023-02-06 20:07 | PCM.HOSP.N ---
Hospitalist Note Repeat Hgb 6.5, will order 2 u PRBC to be administered and administer until 1L NS bolus until blood available.
[2023-02-06] MEDS: 0.9% Normal Saline (1000mL) 1,000 ML 999 ML IV (20:36)
[2023-02-06] MEDS: buPROPion (SR) 150 MG Tablet.SA PO (23:41)
[2023-02-06] MEDS: Haloperidol 5 MG Tablet PO (23:41)
[2023-02-06] MEDS: MELATONIN 3 MG TABLET PO (23:45)
[2023-02-07] VITALS (7 sets, daily range): BP systolic 105–155; BP diastolic 58–83; PULSE 65–98; RESP 16–18; TEMP 36.2–36.9; O2SAT 95–100
[2023-02-07 02:38] LABS: Hematocrit 25.6 % (40-54); Hemoglobin 8.4 g/dL (13.0-16.5); Mean Corp Hgb Conc 32.8 g/dL (32-36); Mean Corpuscular Volume 88.3 fL (80-94); Mean Platelet Vol. 8.9 fl (6.2-12.0); Platelet Count 271 K/mm3 (150-450); RBC Distribution Width CV 15.4 % (11.6-14.6); White Blood Count 13.5 K/mm3 (4.4-11.0)
[2023-02-07 07:45] LABS: Hematocrit 25.6 % (40-54); Hemoglobin 8.4 g/dL (13.0-16.5); Mean Corp Hgb Conc 32.8 g/dL (32-36); Mean Corpuscular Hgb 29.1 pg (27.0-32.0); Mean Corpuscular Volume 88.6 fL (80-94); Platelet Count 280 K/mm3 (150-450); RBC Distribution Width CV 15.4 % (11.6-14.6); RBC Distribution Width SD 49.3 fl (35.1-43.9); Red Blood Count 2.89 M/mm3 (4.6-6.2); White Blood Count 11.7 K/mm3 (4.4-11.0)
[2023-02-07 08:04] LABS: Anion Gap 5 (5-15); BUN 13 mg/dL (7-18); BUN/Creat Ratio 21.5 RATIO (10-20); Calcium,Total 7.6 mg/dL (8.5-10.1); Chloride 106 mmol/L (98-107); Creatinine, Serum 0.61 mg/dL (0.70-1.30); EST Glomerular Filtration Rate 140 mL/min (>60); Est Glom Filt Rate - Afr Amer 169 mL/min (>60); Estimated Creatinine Clearance 70.97 ml/min; Glucose 104 mg/dL (74-106); Potassium 3.4 mmol/L (3.5-5.1); Sodium Level 140 mmol/L (136-145)
--- NOTE | 2023-02-07 11:39 | OP.COLON_ITS ---
Patient Name: Dinesh Jeffrey Procedure Date: 02/07/2023 9:57 AM Date of : 1950 Age: 72 Procedure: Colonoscopy Indications: Hematochezia Providers: Nj Aceves DO Medicines: Monitored Anesthesia Care Patient Profile: This is a 72 year old male. Refer to note in patient chart for documentation of history and physical. Last Colonoscopy: 1 week ago. Complications: No immediate complications. Procedure: Pre-Anesthesia Assessment: - Prior to the procedure, a History and Physical was performed, and patient medications and allergies were reviewed. The risks and benefits of the procedure and the sedation options and risks were discussed with the patient. All questions were answered and informed consent was obtained. Patient identification and proposed procedure were verified by the physician. Mental Status Examination: normal. Prophylactic Antibiotics: The patient does not require prophylactic antibiotics. Prior Anticoagulants: The patient has taken no anticoagulant or antiplatelet agents. ASA Grade Assessment: II - A patient with mild systemic disease. After reviewing the risks and benefits, the patient was deemed in satisfactory condition to undergo the procedure. The anesthesia plan was to use monitored anesthesia care (MAC). Immediately prior to administration of medications, the patient was re-assessed for adequacy to receive sedatives. The heart rate, respiratory rate, oxygen saturations, blood pressure, adequacy of pulmonary ventilation, and response to care were monitored throughout the procedure. The physical status of the patient was re-assessed after the procedure. After I obtained informed consent, the scope was passed under direct vision. Throughout the procedure, the patient's blood pressure, pulse, and oxygen saturations were monitored continuously. The colonoscope was introduced through the anus and advanced to the cecum, identified by appendiceal orifice and ileocecal valve. The colonoscopy was performed without difficulty. The patient tolerated the procedure well. The quality of the bowel preparation was adequate. The ileocecal valve, appendiceal orifice, and rectum were photographed. Scope In: 11:14:18 AM Scope Withdrawal Time 0 hours 7 minutes 38 seconds Scope Out: 11:30:02 AM Total Procedure Duration Time 0 hours 15 minutes 44 seconds Findings: The perianal and digital rectal examinations were normal. Multiple small and large-mouthed diverticula were found in the entire colon. A single (solitary) ten mm ulcer was found at the hepatic flexure. Oozing was present. Stigmata of recent bleeding were present. Area was successfully injected with 7 mL of a 0.1 mg/mL solution of epinephrine for drug delivery. Coagulation for hemostasis using heater probe was successful. For hemostasis, two hemostatic clips were successfully placed. Clip vamper: [employer]. There was no bleeding at the end of the procedure. Impression: - Diverticulosis in the entire examined colon. - A single (solitary) ulcer at the hepatic flexure. Injected. Treated with a heater probe. Clips were placed. Clip vamper: [employer]. - No specimens collected. Recommendation: - [facility] for [facility] care. - Full liquid diet. - Continue present medications. - Repeat colonoscopy in 5 years for surveillance. Procedure Code(s): --- Professional --- 38861, Colonoscopy, flexible; with control of bleeding, any method 11132, 59, Colonoscopy, flexible; with directed submucosal injection(s), any substance CPT copyright 2021 [employer]. All rights reserved. The codes documented in this report are preliminary and upon drywall stripper helper review may be revised to meet current compliance requirements. Nj Aceves DO 02/07/2023 11:38:46 AM This report has been signed electronically. Number of Addenda: 0 Note Initiated On: 02/07/2023 9:57 AM
--- NOTE | 2023-02-07 11:39 | OP.CCLET_ITS ---
02/07/2023 Anitra Bacon Re : Colonoscopy procedure for Dinesh Jeffrey Dear Jordi This procedure was performed on Tuesday, February 07, 2023. My impressions and recommendations are as follows: Impressions : - Diverticulosis in the entire examined colon. - A single (solitary) ulcer at the hepatic flexure. Injected. Treated with a heater probe. Clips were placed. Clip post secondary professional: [employer]. - No specimens collected. Recommendations : - Return patient to [facility] for [facility] care. - Full liquid diet. - Continue present medications. - Repeat colonoscopy in 5 years for surveillance. My findings are described in the full procedure note, which is enclosed. If I can be of further assistance, please feel free to contact me at . Sincerely, Nj Friend, 02/07/2023 11:38:46 AM This report has been signed electronically.
[2023-02-07] MEDS: buPROPion (SR) 150 MG Tablet.SA PO ×2 (12:31→21:46)
--- NOTE | 2023-02-07 15:25 | PN.HOSP_ITS ---
Reason for Visit Reason for Visit: Diagnoses Gastrointestinal hemorrhage, unspecified (02/06/23) Subjective Subjective Patient seen at bedside this afternoon after he had colonoscopy done this morning. Patient sitting up at bedside, walking around the room without issue, conversing normally, no acute distress. Patient states he tolerated the seizure well this morning. Has not had any bloody bowel movements or dark stools since the procedure. He is hopeful that he will not have any further bloody bowel movements going forward. No other acute concerns afternoon. Objective Data Objective Data Vital Signs: Vital Signs Temp Pulse Resp BP Pulse Ox O2 Del Method 97.8 F 72 18 130/69 H 98 Room Air 02/07/23 12:25 02/07/23 12:25 02/07/23 12:25 02/07/23 12:25 02/07/23 12:25 02/07/23 15:14 Oxygen Delivery Method Room Air Weight: 75.1 kg Body Mass Index (BMI) 23.7 Intake & Output: Intake and Output for Last 24 Hours 02/05/23 02/06/23 02/07/23 23:59 23:59 23:59 Intake Total 3100 / 3500 1780 / 1780 Output Total 0 / 100 700 / 700 Balance 3100 / 3400 1080 / 1080 Lab / Micro Data 02/07/23 07:25 02/07/23 07:25 Labs: Laboratory Results - last 24 hr 02/06/23 11:31: Blood Type O POSITIVE, Antibody Screen NEGATIVE, Crossmatch See Detail 02/06/23 11:31: Crossmatch See Detail 02/07/23 02:13: WBC 13.5 H, RBC 2.90 L, Hgb 8.4 L, Hct 25.6 L, MCV 88.3, MCH 29.0, MCHC 32.8, RDW Std Deviation 49.0 H, RDW Coeff of Terry 15.4 H, Plt Count 271, MPV 8.9 02/07/23 07:25: WBC 11.7 H, RBC 2.89 L, Hgb 8.4 L, Hct 25.6 L, MCV 88.6, MCH 29.1, MCHC 32.8, RDW Std Deviation 49.3 H, RDW Coeff of Terry 15.4 H, Plt Count 280, MPV 9.0, Sodium 140, Potassium 3.4 L, Chloride 106, Carbon Dioxide 29.0, Anion Gap 5, BUN 13, Creatinine 0.61 L, Estim Creat Clear Calc 70.97, Est GFR (MDRD) Af Amer 169, Est GFR (MDRD) Non-Af 140, BUN/Creatinine Ratio 21.5 H, Glucose 104, Calcium 7.6 L Physical Exam Const alert, oriented x3, no apparent distress, average body habitus and healthy appearing Constitutional Narrative: Pleasant elderly male, standing comfortably at edge of bed, conversing normally, no acute distress. General Appearance: cooperative and comfortable HEENT normocephalic, head/scalp atraumatic, hearing grossly normal bilaterally, nasal mucous membranes and turbinates normal and moist oral mucous membranes Eyes PERRL, EOMs intact bilaterally and conjunctivae normal Neck full ROM, no lymphadenopathy and supple Lymph Lymphatic: no lymphadenopathy noted Chest inspection of chest normal Resp normal respiratory effort, normal air movement, no use of accessory muscles and clear to auscultation bilaterally Cardio regular rate, regular rhythm, no murmurs and peripheral pulses 2+ throughout GI normal to inspection, nondistended, normoactive bowel sounds, soft to palpation, non-tender and non-distended Back/Spine normal ROM Extremity normal to inspection, full ROM and no pedal edema Skin no rashes or lesions noted Psych mental status grossly normal Assessment & Plan Assessment/Plan (1) Acute lower gastrointestinal bleeding: PLAN: Plan Patient is a 72-year-old male with history of hypertension, BPH, paranoid schizophrenia and recent admission for lower GI bleed who presented to [facility] ED on 02/06/2023 with recurrent GI bleed. 1. Lower GI bleed, acute blood loss anemia on chronic anemia Patient was recently hospitalized from 02/03 to 02/05 for lower GI bleed. S/p colonoscopy with Dr. Aceves on 02/04 that showed diverticulosis of the entire examined colon, one 9 mm polyp at hepatic flexure that was removed with hot snare. Baseline hemoglobin prior to that admission was noted to be around 14- 15, was down to 9.4 then. Hemoglobin remained stable around 9 during admission, did not require any blood transfusions. Hemoglobin 6.5 on admission on 02/06. Patient reported a few episodes of dark-colored stool on morning of admission. Also mildly hypotensive on admission. S/p 2 units of packed red blood cells on 02/06 with repeat hemoglobin of 8.4. ? Gastroenterology following. S/p colonoscopy on 02/07, single solitary ulcer found at hepatic flexure, was injected and clips were placed. We will follow-up for repeat CBC tomorrow morning. If hemoglobin stable, will be okay for discharge home tomorrow. 2. Mild hypotension, improved Secondary to volume loss from GI bleed as noted above. Blood pressure 90s over 50s on admission. Patient with good mentation, denied any lightheadedness or dizziness with ambulation. ? Given 1 L normal saline bolus in the ED. BP improved after bolus and 2 units packed red blood cells. Continue to hold home hydrochlorothiazide and Flomax for now. Follow-up BP tomorrow morning, can consider restarting home medications on discharge as able. Chronic medical conditions: ? Paranoid schizophrenia: Continue home bupropion and Haldol. ? BPH: Holding home Flomax due to hypotension as noted above. DVT prophylaxis: SCDs CODE STATUS: DNR CCA, DO NOT INTUBATE Expected disposition: Home, 1 to 2 days Total clinical time spent by myself addressing the patient's medical issues, reviewing all the data, and collaborating with patient's care team: 35 minutes. Charges/Coding Visit Charges Inpatient E&M: 93904 Subs Hosp L2
[2023-02-07] MEDS: 0.9% Saline Lock 10 ML Syringe IV (20:42)
[2023-02-07] MEDS: MELATONIN 3 MG TABLET PO (21:46)
[2023-02-07] MEDS: Haloperidol 5 MG Tablet PO (21:46)
[2023-02-08 03:50] VITALS: BP 117/65; PULSE 77; RESP 18; TEMP 37.6; O2SAT 97
[2023-02-08 07:02] LABS: Hematocrit 22.1 % (40-54); Mean Corp Hgb Conc 31.7 g/dL (32-36); Mean Corpuscular Volume 91.7 fL (80-94); Mean Platelet Vol. 8.8 fl (6.2-12.0); Platelet Count 285 K/mm3 (150-450); RBC Distribution Width CV 15.5 % (11.6-14.6); RBC Distribution Width SD 50.3 fl (35.1-43.9); Red Blood Count 2.41 M/mm3 (4.6-6.2); White Blood Count 13.6 K/mm3 (4.4-11.0)
[2023-02-08 07:28] LABS: Anion Gap 3 (5-15); BUN 16 mg/dL (7-18); BUN/Creat Ratio 23.1 RATIO (10-20); Calcium,Total 7.5 mg/dL (8.5-10.1); Chloride 107 mmol/L (98-107); Creatinine, Serum 0.69 mg/dL (0.70-1.30); EST Glomerular Filtration Rate 120 mL/min (>60); Est Glom Filt Rate - Afr Amer 145 mL/min (>60); Estimated Creatinine Clearance 70.97 ml/min; Glucose 112 mg/dL (74-106); Potassium 3.5 mmol/L (3.5-5.1); Sodium Level 138 mmol/L (136-145)
[2023-02-08 09:35] VITALS: BP 132/61; PULSE 72; RESP 18; TEMP 37.1; O2SAT 97
[2023-02-08] MEDS: buPROPion (SR) 150 MG Tablet.SA PO ×2 (09:38→21:46)
--- NOTE | 2023-02-08 10:39 | CASEMGMT ---
Discharge Planning Updates sent to [facility] via fax. Esther Giron, Discharge Planning Asst.
[2023-02-08 11:50] LABS: Hematocrit 25.3 % (40-54); Hemoglobin 7.7 g/dL (13.0-16.5)
[2023-02-08 15:35] VITALS: BP 136/73; PULSE 81; RESP 18; TEMP 36.9; O2SAT 99
--- NOTE | 2023-02-08 16:02 | PN.HOSP_ITS ---
Subjective Subjective Doing well, denies any shortness of breath. No issues overnight Objective Data Objective Data Vital Signs: Vital Signs Temp Pulse Resp BP Pulse Ox O2 Del Method 98.7 F 72 18 132/61 H 97 Room Air 02/08/23 09:35 02/08/23 09:35 02/08/23 09:35 02/08/23 09:35 02/08/23 09:35 02/08/23 14:00 Oxygen Delivery Method Room Air Weight: 165 lb 9.074 oz Body Mass Index (BMI) 23.7 Intake & Output: Intake and Output for Last 24 Hours 02/07/23 02/08/23 02/09/23 03:59 03:59 03:59 Intake Total 3500 / 3500 1740 / 1740 360 / 360 Output Total 100 / 100 600 / 600 Balance 3400 / 3400 1140 / 1140 359 / 359 Lab / Micro Data 02/09/23 11:40 02/09/23 05:04 Labs: Laboratory Results - last 24 hr 02/08/23 06:45: WBC 13.6 H, RBC 2.41 L, Hgb 7.0 L, Hct 22.1 L, MCV 91.7, MCH 29.0, MCHC 31.7 L, RDW Std Deviation 50.3 H, RDW Coeff of Terry 15.5 H, Plt Count 285, MPV 8.8, Sodium 138, Potassium 3.5, Chloride 107, Carbon Dioxide 28.0, Anion Gap 3 L, BUN 16, Creatinine 0.69 L, Estim Creat Clear Calc 70.97, Est GFR (MDRD) Af Amer 145, Est GFR (MDRD) Non-Af 120, BUN/Creatinine Ratio 23.1 H, Glucose 112 H, Calcium 7.5 L 02/08/23 11:25: Hgb 7.7 L, Hct 25.3 L Physical Exam Narrative General: Alert, Oriented x3, Cooperative, No apparent distress HEENT: Atraumatic, PERRLA, EOMI, Normocephalic Oral: Moist Mucosa Neck: Supple, No JVD Lungs: Diminished, Normal air movement, No rhonchi, No wheeze, No rales Cardiovascular: Regular rate, Regular Rhythm, Normal S1, Normal S2, No murmurs Abdomen: Soft, Non Tender, Non-Distended, No Hepato-splenomegaly Extremities: No edema, Capillary Refill Less than 3 Seconds Skin: No rashes, No breakdown Musculoskeletal: No Tenderness to Palpation of Joints or Extremities Neurological: Cranial nerves II-XII grossly intact, Motor Exam 5/5 strength throughout, Sensory exam intact to light touch and pain Psych/Mental Status: Normal Affect, Appropriate Assessment & Plan Assessment/Plan (1) Acute lower gastrointestinal bleeding: PLAN: Plan 1. Lower GI bleed, acute blood loss anemia on chronic anemia Patient was recently hospitalized from 02/03 to 02/05 for lower GI bleed. S/p colonoscopy with Dr. Aceves on 02/04 that showed diverticulosis of the entire examined colon, one 9 mm polyp at hepatic flexure that was removed with hot snare. Baseline hemoglobin prior to that admission was noted to be around 14- 15, was down to 9.4 then. Hemoglobin remained stable around 9 during admission, did not require any blood transfusions. Hemoglobin 6.5 on admission on 02/06. Patient reported a few episodes of dark-colored stool on morning of admission. Also mildly hypotensive on admission. S/p 2 units of packed red blood cells on 02/06 with repeat hemoglobin of 8.4. ? Gastroenterology following. S/p colonoscopy on 02/07, single solitary ulcer found at hepatic flexure, was injected and clips were placed. ? We will follow-up for repeat CBC tomorrow morning. If hemoglobin stable, will be okay for discharge home tomorrow. 2. Mild hypotension, improved Secondary to volume loss from GI bleed as noted above. Blood pressure 90s over 50s on admission. Patient with good mentation, denied any lightheadedness or dizziness with ambulation. ? Given 1 L normal saline bolus in the ED. BP improved after bolus and 2 units packed red blood cells. Continue to hold home hydrochlorothiazide and Flomax for now. Follow-up BP tomorrow morning, can consider restarting home medications on discharge as able. Chronic medical conditions: ? Paranoid schizophrenia: Continue home bupropion and Haldol. ? BPH: Holding home Flomax due to hypotension as noted above. DVT: SCDs Charges/Coding Visit Charges Inpatient E&M: 85993 Subs Hosp L2
--- NOTE | 2023-02-08 21:27 | PN.GI_ITS ---
Subjective Subjective Patient underwent a colonoscopy yesterday for lower gi bleeding. His hgb was down this morning to 7.0. Repeat hgb is 7.7. Objective Data Objective Data Vital Signs: Vital Signs Temp Pulse Resp BP Pulse Ox O2 Del Method 98.4 F 81 18 136/73 H 99 Room Air 02/08/23 15:35 02/08/23 15:35 02/08/23 15:35 02/08/23 15:35 02/08/23 15:35 02/08/23 20:26 Oxygen Delivery Method Room Air Weight: 165 lb 9.074 oz Body Mass Index (BMI) 23.7 Intake & Output: Intake and Output for Last 24 Hours 02/06/23 02/07/23 02/08/23 23:59 23:59 23:59 Intake Total 3100 / 3500 2140 / 2140 600 / 600 Output Total 0 / 100 700 / 700 1 / 1 Balance 3100 / 3400 1440 / 1440 599 / 599 Lab / Micro Data 02/08/23 11:25 02/08/23 06:45 Labs: Laboratory Results - last 24 hr 02/08/23 06:45: WBC 13.6 H, RBC 2.41 L, Hgb 7.0 L, Hct 22.1 L, MCV 91.7, MCH 29.0, MCHC 31.7 L, RDW Std Deviation 50.3 H, RDW Coeff of Terry 15.5 H, Plt Count 285, MPV 8.8, Sodium 138, Potassium 3.5, Chloride 107, Carbon Dioxide 28.0, An ion Gap 3 L, BUN 16, Creatinine 0.69 L, Estim Creat Clear Calc 70.97, Est GFR (MDRD) Af Amer 145, Est GFR (MDRD) Non-Af 120, BUN/Creatinine Ratio 23.1 H, Glucose 112 H, Calcium 7.5 L 02/08/23 11:25: Hgb 7.7 L, Hct 25.3 L Physical Exam Const alert, oriented x3, no apparent distress, average body habitus and healthy appearing Constitutional Narrative: Pleasant elderly male, standing comfortably at edge of bed, conversing normally, no acute distress. General Appearance: cooperative and comfortable HEENT normocephalic, head/scalp atraumatic, hearing grossly normal bilaterally, nasal mucous membranes and turbinates normal and moist oral mucous membranes Eyes PERRL, EOMs intact bilaterally and conjunctivae normal Neck full ROM, no lymphadenopathy and supple Lymph Lymphatic: no lymphadenopathy noted Chest inspection of chest normal Resp normal respiratory effort, normal air movement, no use of accessory muscles and clear to auscultation bilaterally Cardio regular rate, regular rhythm, no murmurs and peripheral pulses 2+ throughout GI normal to inspection, nondistended, normoactive bowel sounds, soft to palpation, non-tender and non-distended Back/Spine normal ROM Extremity normal to inspection, full ROM and no pedal edema Skin no rashes or lesions noted Psych mental status grossly normal Assessment & Plan Assessment/Plan (1) Lower GI bleed: (2) COVID: PLAN: Plan #Acute lower GI bleed * CT abdomen showed fluid filled distended small bowel loops and fluid filled dilated small bowel and ascending colon with no evidence of acute diverticulitis * colonoscopy today shoed diverticulosis and an ulcer at the hepatic flexure which was treated endoscopically. * # Acute blood loss anemia * Hb today is 7.7. baseline Hb is 14-15/ * transfuse if hb <7 * #COVID 19 infection: asymptomatic. On room air. Will monitor #Hypertension; HCTZ on hold due to dehydration and near syncope. IV hydralazine prn #Potassium: K is 3.1. Will replace and trend. 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 #paranoid schizophrenia: on haldol DVT prophylaxis; SCDs Charges/Coding Visit Charges Inpatient E&M: 09631 Subs Hosp L3
[2023-02-08 21:45] VITALS: BP 147/69; PULSE 77; RESP 18; TEMP 37.4; O2SAT 99
[2023-02-08] MEDS: Haloperidol 5 MG Tablet PO (21:46)
[2023-02-08] MEDS: MELATONIN 3 MG TABLET PO (21:46)
[2023-02-09] VITALS (8 sets, daily range): BP systolic 112–149; BP diastolic 61–73; PULSE 65–78; RESP 18; TEMP 36.7–37.3; O2SAT 98–100
[2023-02-09 05:55] LABS: Hematocrit 20.7 % (40-54); Hemoglobin 6.4 g/dL (13.0-16.5); Mean Corp Hgb Conc 30.9 g/dL (32-36); Mean Corpuscular Hgb 29.1 pg (27.0-32.0); Mean Corpuscular Volume 94.1 fL (80-94); Mean Platelet Vol. 9.1 fl (6.2-12.0); Platelet Count 319 K/mm3 (150-450); RBC Distribution Width CV 15.7 % (11.6-14.6); RBC Distribution Width SD 52.2 fl (35.1-43.9); White Blood Count 10.7 K/mm3 (4.4-11.0)
[2023-02-09 06:34] LABS: Anion Gap 4 (5-15); BUN 11 mg/dL (7-18); BUN/Creat Ratio 17.1 RATIO (10-20); Calcium,Total 7.5 mg/dL (8.5-10.1); Chloride 108 mmol/L (98-107); Creatinine, Serum 0.64 mg/dL (0.70-1.30); EST Glomerular Filtration Rate 130 mL/min (>60); Est Glom Filt Rate - Afr Amer 158 mL/min (>60); Estimated Creatinine Clearance 70.97 ml/min; Glucose 105 mg/dL (74-106); Potassium 3.6 mmol/L (3.5-5.1); Sodium Level 140 mmol/L (136-145)
[2023-02-09] MEDS: buPROPion (SR) 150 MG Tablet.SA PO ×2 (10:05→20:46)
[2023-02-09 12:02] LABS: Hematocrit 26.6 % (40-54)
--- NOTE | 2023-02-09 14:01 | PN.GI_ITS ---
Subjective Subjective Patient remains normotensive. He did have a couple episodes of maroonish stools with possible some small streaks of blood. He cannot tell if it was old blood or new blood. There is no active bleeding seen at this time. Objective Data Objective Data Vital Signs: Vital Signs Temp Pulse Resp BP Pulse Ox O2 Del Method 98.5 F 67 18 119/64 100 Room Air 02/09/23 10:08 02/09/23 10:08 02/09/23 10:08 02/09/23 10:08 02/09/23 10:08 02/09/23 10:08 Oxygen Delivery Method Room Air Weight: 165 lb 9.074 oz Body Mass Index (BMI) 23.7 Intake & Output: Intake and Output for Last 24 Hours 02/07/23 02/08/23 02/09/23 23:59 23:59 23:59 Intake Total 2140 / 2140 600 / 600 400 / 400 Output Total 700 / 700 1 / 1 Balance 1440 / 1440 599 / 599 400 / 400 Lab / Micro Data 02/09/23 11:40 02/09/23 05:04 Labs: Laboratory Results - last 24 hr 02/06/23 11:31: Crossmatch See Detail 02/06/23 11:31: Crossmatch See Detail 02/09/23 05:04: WBC 10.7, RBC 2.20 L, Hgb 6.4 L, Hct 20.7 L, MCV 94.1 H, MCH 29.1, MCHC 30.9 L, RDW Std Deviation 52.2 H, RDW Coeff of Terry 15.7 H, Plt Count 319, MPV 9.1, Sodium 140, Potassium 3.6, Chloride 108 H, Carbon Dioxide 28.0, Anion Gap 4 L, BUN 11, Creatinine 0.64 L, Estim Creat Clear Calc 70.97, Est GFR (MDRD) Af Amer 158, Est GFR (MDRD) Non-Af 130, BUN/Creatinine Ratio 17.1, Glucose 105, Calcium 7.5 L 02/09/23 11:40: Hgb 8.0 L, Hct 26.6 L Physical Exam Const alert, oriented x3, no apparent distress, average body habitus and healthy appearing Constitutional Narrative: Pleasant elderly male, standing comfortably at edge of bed, conversing normally, no acute distress. General Appearance: cooperative and comfortable HEENT normocephalic, head/scalp atraumatic, hearing grossly normal bilaterally, nasal mucous membranes and turbinates normal and moist oral mucous membranes Eyes PERRL, EOMs intact bilaterally and conjunctivae normal Neck full ROM, no lymphadenopathy and supple Lymph Lymphatic: no lymphadenopathy noted Chest inspection of chest normal Resp normal respiratory effort, normal air movement, no use of accessory muscles and clear to auscultation bilaterally Cardio regular rate, regular rhythm, no murmurs and peripheral pulses 2+ throughout GI normal to inspection, nondistended, normoactive bowel sounds, soft to palpation, non-tender and non-distended Back/Spine normal ROM Extremity normal to inspection, full ROM and no pedal edema Skin no rashes or lesions noted Psych mental status grossly normal Assessment & Plan Assessment/Plan (1) Lower GI bleed: (2) COVID: PLAN: Plan #Acute lower GI bleed * CT abdomen showed fluid filled distended small bowel loops and fluid filled dilated small bowel and ascending colon with no evidence of acute diverticulitis * colonoscopy today shoed diverticulosis and an ulcer at the hepatic flexure which was treated endoscopically. * # Acute blood loss anemia * Hb today is 8, after blood transfusion for hemoglobin of 6.4. Baseline Hb is 14-15/ * transfuse if hb <7 * #COVID 19 infection: asymptomatic. On room air. Will monitor #Hypertension; HCTZ on hold due to dehydration and near syncope. IV hydralazine prn #Potassium: K is within normal limits 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 #paranoid schizophrenia: on haldol DVT prophylaxis; SCDs Charges/Coding Visit Charges Inpatient E&M: 27725 Subs Hosp L3
--- NOTE | 2023-02-09 17:03 | PN.HOSP_ITS ---
Subjective Subjective Doing well, hemoglobin dropped to 6.4 overnight and transfused 1 unit prbcs this am Objective Data Objective Data Vital Signs: Vital Signs Temp Pulse Resp BP Pulse Ox O2 Del Method 98.0 F 78 18 146/73 H 100 Room Air 02/09/23 16:00 02/09/23 16:00 02/09/23 16:00 02/09/23 16:00 02/09/23 16:00 02/09/23 16:00 Oxygen Delivery Method Room Air Weight: 165 lb 9.074 oz Body Mass Index (BMI) 23.7 Intake & Output: Intake and Output for Last 24 Hours 02/08/23 02/09/23 02/10/23 03:59 03:59 03:59 Intake Total 1740 / 1740 600 / 600 400 / 400 Output Total 600 / 600 Balance 1140 / 1140 599 / 599 400 / 400 Lab / Micro Data 02/09/23 11:40 02/09/23 05:04 Labs: Laboratory Results - last 24 hr 02/06/23 11:31: Crossmatch See Detail 02/06/23 11:31: Crossmatch See Detail 02/09/23 05:04: WBC 10.7, RBC 2.20 L, Hgb 6.4 L, Hct 20.7 L, MCV 94.1 H, MCH 29.1, MCHC 30.9 L, RDW Std Deviation 52.2 H, RDW Coeff of Terry 15.7 H, Plt Count 319, MPV 9.1, Sodium 140, Potassium 3.6, Chloride 108 H, Carbon Dioxide 28.0, Anion Gap 4 L, BUN 11, Creatinine 0.64 L, Estim Creat Clear Calc 70.97, Est GFR (MDRD) Af Amer 158, Est GFR (MDRD) Non-Af 130, BUN/Creatinine Ratio 17.1, Glucose 105, Calcium 7.5 L 02/09/23 11:40: Hgb 8.0 L, Hct 26.6 L Physical Exam Narrative General: Alert, Oriented x3, Cooperative, No apparent distress HEENT: Atraumatic, PERRLA, EOMI, Normocephalic Oral: Moist Mucosa Neck: Supple, No JVD Lungs: Diminished, Normal air movement, No rhonchi, No wheeze, No rales Cardiovascular: Regular rate, Regular Rhythm, Normal S1, Normal S2, No murmurs Abdomen: Soft, Non Tender, Non-Distended, No Hepato-splenomegaly Extremities: No edema, Capillary Refill Less than 3 Seconds Skin: No rashes, No breakdown Musculoskeletal: No Tenderness to Palpation of Joints or Extremities Neurological: Cranial nerves II-XII grossly intact, Motor Exam 5/5 strength throughout, Sensory exam intact to light touch and pain Psych/Mental Status: Normal Affect, Appropriate Assessment & Plan Assessment/Plan (1) Acute lower gastrointestinal bleeding: PLAN: Plan 1. Lower GI bleed, acute blood loss anemia on chronic anemia Patient was recently hospitalized from 02/03 to 02/05 for lower GI bleed. S/p colonoscopy with Dr. Aceves on 02/04 that showed diverticulosis of the entire examined colon, one 9 mm polyp at hepatic flexure that was removed with hot snare. Baseline hemoglobin prior to that admission was noted to be around 14- 15, was down to 9.4 then. Hemoglobin remained stable around 9 during admission, did not require any blood transfusions. Hemoglobin 6.5 on admission on 02/06. Patient reported a few episodes of dark-colored stool on morning of admission. Also mildly hypotensive on admission. S/p 2 units of packed red blood cells on 02/06 with repeat hemoglobin of 8.4. ? Gastroenterology following. S/p colonoscopy on 02/07, single solitary ulcer found at hepatic flexure, was injected and clips were placed. ? After transfusion hgb corrected to 8, will recheck in am, may need EGD and colonoscopy if he drops again. Can take out of precautions for COVID in the am 2. Mild hypotension, improved Secondary to volume loss from GI bleed as noted above. Blood pressure 90s over 50s on admission. Patient with good mentation, denied any lightheadedness or dizziness with ambulation. ? Given 1 L normal saline bolus in the ED. BP improved after bolus and 2 units packed red blood cells. Continue to hold home hydrochlorothiazide and Flomax for now. Follow-up BP tomorrow morning, can consider restarting home medications on discharge as able. Chronic medical conditions: ? Paranoid schizophrenia: Continue home bupropion and Haldol. ? BPH: Holding home Flomax due to hypotension as noted above. DVT: SCDs Charges/Coding Visit Charges Inpatient E&M: 50374 Subs Hosp L2
[2023-02-09] MEDS: Electrolyte Solution/Peg's 4000 ML PO (20:43)
[2023-02-09] MEDS: Haloperidol 5 MG Tablet PO (20:46)
[2023-02-10] VITALS (14 sets, daily range): BP systolic 102–136; BP diastolic 61–90; PULSE 66–81; RESP 14–18; TEMP 36.3–37.6; O2SAT 97–100; BMI 23.7
[2023-02-10 04:48] LABS: Hematocrit 21.8 % (40-54); Hemoglobin 6.9 g/dL (13.0-16.5); Mean Corp Hgb Conc 31.7 g/dL (32-36); Mean Corpuscular Hgb 29.2 pg (27.0-32.0); Mean Corpuscular Volume 92.4 fL (80-94); Mean Platelet Vol. 8.9 fl (6.2-12.0); Platelet Count 346 K/mm3 (150-450); RBC Distribution Width CV 15.8 % (11.6-14.6); RBC Distribution Width SD 51.5 fl (35.1-43.9); Red Blood Count 2.36 M/mm3 (4.6-6.2); White Blood Count 10.7 K/mm3 (4.4-11.0)
[2023-02-10 05:05] LABS: International Normalized Ratio 1.1; Prothrombin Time (Protime)PT. 14.3 SECONDS (11.7-14.9)
[2023-02-10 05:13] LABS: Anion Gap 3 (5-15); BUN 14 mg/dL (7-18); BUN/Creat Ratio 20.6 RATIO (10-20); Calcium,Total 7.6 mg/dL (8.5-10.1); Chloride 109 mmol/L (98-107); Creatinine, Serum 0.68 mg/dL (0.70-1.30); EST Glomerular Filtration Rate 122 mL/min (>60); Est Glom Filt Rate - Afr Amer 148 mL/min (>60); Estimated Creatinine Clearance 70.97 ml/min; Glucose 109 mg/dL (74-106); Potassium 3.7 mmol/L (3.5-5.1); Sodium Level 141 mmol/L (136-145)
--- NOTE | 2023-02-10 05:55 | EKG12_ITS ---
Test Reason : AM EKG Blood Pressure : / mmHG Vent. Rate : 073 BPM Atrial Rate : 073 BPM P-R Int : 156 ms QRS Dur : 090 ms QT Int : 384 ms P-R-T Axes : 067 050 051 degrees QTc Int : 423 ms Normal sinus rhythm Normal ECG Confirmed by ANIVAL ARTHUR, CLAUDIA ([id number]), city editor HANNAH MARTINEZ ([id number]) on 02/16/2023 10:15:17 AM Referred By: DAVE Confirmed By:CLAUDIA FLORIAN MD
[2023-02-10] MEDS: Lactated Ringers 1,000 ML 15 ML IV (10:45)
--- NOTE | 2023-02-10 11:44 | PN.HOSP_ITS ---
Subjective Subjective Hemoglobin dropped to 6.9 again today, received another unit of blood Objective Data Objective Data Vital Signs: Vital Signs Temp Pulse Resp BP Pulse Ox O2 Del Method 98.4 F 66 18 133/62 H 97 Room Air 02/10/23 09:00 02/10/23 09:00 02/10/23 09:00 02/10/23 09:00 02/10/23 09:00 02/10/23 09:00 Oxygen Delivery Method Room Air Weight: 165 lb 9.074 oz Body Mass Index (BMI) 23.7 Intake & Output: Intake and Output for Last 24 Hours 02/09/23 02/10/23 02/11/23 03:59 03:59 03:59 Intake Total 600 / 600 400 / 400 400 / 400 Output Total Balance 599 / 599 400 / 400 400 / 400 Lab / Micro Data 02/10/23 04:25 02/10/23 04:25 Labs: Laboratory Results - last 24 hr 02/06/23 11:31: Crossmatch See Detail 02/09/23 11:40: Hgb 8.0 L, Hct 26.6 L, Blood Type O POSITIVE, Antibody Screen NEGATIVE, Crossmatch See Detail 02/10/23 04:25: WBC 10.7, RBC 2.36 L, Hgb 6.9 L, Hct 21.8 L, MCV 92.4, MCH 29.2, MCHC 31.7 L, RDW Std Deviation 51.5 H, RDW Coeff of Terry 15.8 H, Plt Count 346, MPV 8.9, PT 14.3, INR 1.1, APTT 30.0, Sodium 141, Potassium 3.7, Chloride 109 H, Carbon Dioxide 29.0, Anion Gap 3 L, BUN 14, Creatinine 0.68 L, Estim Creat Clear Calc 70.97, Est GFR (MDRD) Af Amer 148, Est GFR (MDRD) Non-Af 122, BUN/Creatinine Ratio 20.6 H, Glucose 109 H, Calcium 7.6 L Physical Exam Narrative General: Alert, Oriented x3, Cooperative, No apparent distress HEENT: Atraumatic, PERRLA, EOMI, Normocephalic Oral: Moist Mucosa Neck: Supple, No JVD Lungs: Diminished, Normal air movement, No rhonchi, No wheeze, No rales Cardiovascular: Regular rate, Regular Rhythm, Normal S1, Normal S2, No murmurs Abdomen: Soft, Non Tender, Non-Distended, No Hepato-splenomegaly Extremities: No edema, Capillary Refill Less than 3 Seconds Skin: No rashes, No breakdown Musculoskeletal: No Tenderness to Palpation of Joints or Extremities Neurological: Cranial nerves II-XII grossly intact, Motor Exam 5/5 strength throughout, Sensory exam intact to light touch and pain Psych/Mental Status: Normal Affect, Appropriate Assessment & Plan Assessment/Plan (1) Acute lower gastrointestinal bleeding: PLAN: Plan 1. Lower GI bleed, acute blood loss anemia on chronic anemia Patient was recently hospitalized from 02/03 to 02/05 for lower GI bleed. S/p colonoscopy with Dr. Aceves on 02/04 that showed diverticulosis of the entire examined colon, one 9 mm polyp at hepatic flexure that was removed with hot snare. Baseline hemoglobin prior to that admission was noted to be around 14- 15, was down to 9.4 then. Hemoglobin remained stable around 9 during admission, did not require any blood transfusions. Hemoglobin 6.5 on admission on 02/06. Patient reported a few episodes of dark-colored stool on morning of admission. Also mildly hypotensive on admission. S/p 2 units of packed red blood cells on 02/06 with repeat hemoglobin of 8.4. ? Gastroenterology following. S/p colonoscopy on 02/07, single solitary ulcer found at hepatic flexure, was injected and clips were placed. ? Hemoglobin today 6.9, likely need EGD and colonoscopy. Received 1 unit of blood again today. ? We will move out of COVID precautions as he is about 10 days since symptom onset and is currently 2. Mild hypotension, improved Secondary to volume loss from GI bleed as noted above. Blood pressure 90s over 50s on admission. Patient with good mentation, denied any lightheadedness or dizziness with ambulation. ? Given 1 L normal saline bolus in the ED. BP improved after bolus and 2 units packed red blood cells. Continue to hold home hydrochlorothiazide and Flomax for now. Follow-up BP tomorrow morning, can consider restarting home medications on discharge as able. Chronic medical conditions: ? Paranoid schizophrenia: Continue home bupropion and Haldol. ? BPH: Holding home Flomax due to hypotension as noted above. DVT: SCDs Charges/Coding Visit Charges Inpatient E&M: 15773 Subs Hosp L2
--- NOTE | 2023-02-10 12:23 | OP.EGD_ITS ---
Patient Name: Dinesh Jeffrey Procedure Date: 02/10/2023 10:41 AM Date of : 1950 Age: 72 Procedure: Upper GI endoscopy Indications: Iron deficiency anemia Providers: Nj Aceves DO Medicines: Monitored Anesthesia Care Patient Profile: This is a 72 year old male. Refer to note in patient chart for documentation of history and physical. Patient has symptoms of acute dyspepsia. Complications: No immediate complications. Procedure: Pre-Anesthesia Assessment: - Prior to the procedure, a History and Physical was performed, and patient medications and allergies were reviewed. The risks and benefits of the procedure and the sedation options and risks were discussed with the patient. All questions were answered and informed consent was obtained. Patient identification and proposed procedure were verified by the physician. Mental Status Examination: normal. Airway Examination: normal oropharyngeal airway and neck mobility. Respiratory Examination: clear to auscultation. CV Examination: normal. Prophylactic Antibiotics: The patient does not require prophylactic antibiotics. Prior Anticoagulants: The patient has taken no anticoagulant or antiplatelet agents. ASA Grade Assessment: II - A patient with mild systemic disease. After reviewing the risks and benefits, the patient was deemed in satisfactory condition to undergo the procedure. The anesthesia plan was to use monitored anesthesia care (MAC). Immediately prior to administration of medications, the patient was re-assessed for adequacy to receive sedatives. The heart rate, respiratory rate, oxygen saturations, blood pressure, adequacy of pulmonary ventilation, and response to care were monitored throughout the procedure. The physical status of the patient was re-assessed after the procedure. After obtaining informed consent, the endoscope was passed under direct vision. Throughout the procedure, the patient's blood pressure, pulse, and oxygen saturations were monitored continuously. The Colonoscope was introduced through the mouth, and advanced to the second part of duodenum. The upper GI endoscopy was accomplished without difficulty. The patient tolerated the procedure well. Scope In: 11:36:53 AM Scope Out: 11:39:57 AM Total Procedure Duration Time 0 hours 3 minutes 4 seconds Findings: The examined esophagus was normal. A medium-sized hiatal hernia was present. The entire examined stomach was normal. The second portion of the duodenum was normal. Impression: - Normal esophagus. - Medium-sized hiatal hernia. - Normal stomach. - Normal second portion of the duodenum. - No specimens collected. Recommendation: - Discharge patient to home. - Continue present medications. Procedure Code(s): --- Professional --- 29081, Esophagogastroduodenoscopy, flexible, transoral; diagnostic, including collection of specimen(s) by brushing or washing, when performed (separate procedure) CPT copyright 2021 [employer]. All rights reserved. The codes documented in this report are preliminary and upon auditing coder review may be revised to meet current compliance requirements. Nj Aceves DO 02/10/2023 12:22:11 PM This report has been signed electronically. Number of Addenda: 0 Note Initiated On: 02/10/2023 10:41 AM
--- NOTE | 2023-02-10 12:23 | OP.CCLET_ITS ---
02/10/2023 Anitra Bacon Re : Upper GI endoscopy procedure for Dinesh Jeffrey Dear Jordi This procedure was performed on Friday, February 10, 2023. My impressions and recommendations are as follows: Impressions : - Normal esophagus. - Medium-sized hiatal hernia. - Normal stomach. - Normal second portion of the duodenum. - No specimens collected. Recommendations : - Discharge patient to home. - Continue present medications. My findings are described in the full procedure note, which is enclosed. If I can be of further assistance, please feel free to contact me at . Sincerely, Nj Aceves, 02/10/2023 12:22:11 PM This report has been signed electronically.
--- NOTE | 2023-02-10 12:25 | OP.CCLET_ITS ---
02/10/2023 Anitra Bacon Re : Colonoscopy procedure for Dinesh Jeffrey Dear Jordi This procedure was performed on Friday, February 10, 2023. My impressions and recommendations are as follows: Impressions : - Diverticulosis in the recto-sigmoid colon, in the sigmoid colon, in the descending colon and at the splenic flexure. - No specimens collected. Recommendations : - [facility]. - Resume regular diet. - Continue present medications. - CT angiography - No repeat colonoscopy due to no evidence of mucosal or other abnormalities on today's exam. My findings are described in the full procedure note, which is enclosed. If I can be of further assistance, please feel free to contact me at . Sincerely, Nj Aceves, 02/10/2023 12:25:00 PM This report has been signed electronically.
--- NOTE | 2023-02-10 12:25 | OP.COLON_ITS ---
Patient Name: Dinesh Jeffrey Procedure Date: 02/10/2023 11:40 AM Date of : 1950 Age: 72 Procedure: Colonoscopy Indications: Hematochezia Providers: Nj Aceves DO Medicines: Monitored Anesthesia Care Patient Profile: This is a 72 year old male. Refer to note in patient chart for documentation of history and physical. Patient has symptoms of acute dyspepsia. Last Colonoscopy: 1 week ago. Complications: No immediate complications. Procedure: Pre-Anesthesia Assessment: - Prior to the procedure, a History and Physical was performed, and patient medications and allergies were reviewed. The risks and benefits of the procedure and the sedation options and risks were discussed with the patient. All questions were answered and informed consent was obtained. Patient identification and proposed procedure were verified by the physician. Mental Status Examination: normal. Airway Examination: normal oropharyngeal airway and neck mobility. Respiratory Examination: clear to auscultation. CV Examination: normal. Prophylactic Antibiotics: The patient does not require prophylactic antibiotics. Prior Anticoagulants: The patient has taken no anticoagulant or antiplatelet agents. ASA Grade Assessment: II - A patient with mild systemic disease. After reviewing the risks and benefits, the patient was deemed in satisfactory condition to undergo the procedure. The anesthesia plan was to use monitored anesthesia care (MAC). Immediately prior to administration of medications, the patient was re-assessed for adequacy to receive sedatives. The heart rate, respiratory rate, oxygen saturations, blood pressure, adequacy of pulmonary ventilation, and response to care were monitored throughout the procedure. The physical status of the patient was re-assessed after the procedure. After I obtained informed consent, the scope was passed under direct vision. Throughout the procedure, the patient's blood pressure, pulse, and oxygen saturations were monitored continuously. The Colonoscope was introduced through the anus and advanced to the ileocecal valve. Scope In: 11:42:17 AM Scope Withdrawal Time 0 hours 25 minutes 43 seconds Scope Out: 12:15:13 PM Total Procedure Duration Time 0 hours 32 minutes 56 seconds Findings: The perianal and digital rectal examinations were normal. Multiple small and large-mouthed diverticula were found in the recto-sigmoid colon, sigmoid colon, descending colon and splenic flexure. Impression: - Diverticulosis in the recto-sigmoid colon, in the sigmoid colon, in the descending colon and at the splenic flexure. - No specimens collected. Recommendation: - Return patient to [facility]. - Resume regular diet. - Continue present medications. - CT angiography - No repeat colonoscopy due to no evidence of mucosal or other abnormalities on today's exam. Procedure Code(s): --- Professional --- 29639, Colonoscopy, flexible; diagnostic, including collection of specimen(s) by brushing or washing, when performed (separate procedure) CPT copyright 2021 [employer]. All rights reserved. The codes documented in this report are preliminary and upon turbine inspector review may be revised to meet current compliance requirements. Nj Aceves DO 02/10/2023 12:25:00 PM This report has been signed electronically. Number of Addenda: 0 Note Initiated On: 02/10/2023 11:40 AM
--- NOTE | 2023-02-10 13:15 | CT_ITS ---
STUDY: CTA ABDOMEN AND PELVIS WITH CONTRAST REASON FOR EXAM: Male, 72 years old. Lower GI bleeding RADIATION DOSAGE (If Supplied By Facility): CTDIvol = ( 9.67 ) mGy, DLP = ( 409.89 ) mGycm TECHNIQUE: Transaxial images were obtained from the dome of the diaphragm to the symphysis pubis without oral contrast. 100ML OF ISOVUE 370 was administered. Sagittal and coronal images were reconstructed. Individualized dose optimization techniques were used for this CT. COMPARISON: Comparison is made with prior study date February 03, 2023. FINDINGS: Small bilateral pleural effusions with bibasilar atelectasis slightly more prominent at the left lung base. Coronary artery calcification. Normal liver. There are small gallstones. Normal spleen. Normal pancreas. Normal bilateral adrenal glands. Horseshoe kidney. Normal visualized stomach. Normal small intestine. 2 metallic clips are seen in the region of the cecum. These were not seen on prior study. Sigmoid diverticulosis with no radiographic evidence of diverticulitis. The appendix is visualized and appears normal. There is diffuse atherosclerotic calcification of the abdominal aorta, without a demonstrated aneurysm. Normal inferior vena cava. Normal retroperitoneum. Distended urinary bladder. Prostatic enlargement with indentation at the bladder base. Small left inguinal hernia containing nondilated small bowel. There are diffuse degenerative changes of the visualized lumbar spine. CT/CTA Abd/Pelvis W/WO Contrast IMPRESSION: 2 vascular clips are seen in the region of the cecum. Small gallstones. Horseshoe kidneys. Small bilateral pleural effusions with bibasilar atelectasis more pronounced on the right side. Sigmoid diverticulosis. Electronically Signed: Steven Weiner MD at 14:07 EDT ,
[2023-02-10] MEDS: buPROPion (SR) 150 MG Tablet.SA PO ×2 (13:44→22:01)
--- NOTE | 2023-02-10 15:19 | CHAPLAIN ---
Type of Pastoral Visit _x__ Initial Visit ___ Follow-up Visit ___ On-call Visit ___ General Patient Visit ___ Spiritual Assessment ___ Family Conference ___ Bereavement ___ Rapid Response ___ Code Blue ___ Other (describe below) Pastoral Care Referral From _x__ Patient ___ Family ___ Nurse ___ Physician ___ Independent Living Advisor ___ Handle Finisher ___ Other (describe below) Sacrament/Intervention _x__ Active listening ___ Anointing ___ Restoration ___ Bereavement ___ Communion _x__ Charu exploration ___ ___ Life review _x__ Prayer ___ Reconciliation ___ Sacrament of Sick _x__ Supportive presence ___ Wedding ___ Other (describe below) Pastoral Comments patient has some thoughts about linking his illness to spiritual forces; explored his thoughts and offered prayer; presence given to listen; pt expresses appreciation for time and support
--- NOTE | 2023-02-10 17:23 | PN.GI_ITS ---
Subjective Subjective Patient underwent an EGD and colonoscopy today. There was no signs of acute GI blood loss in the stomach. There was some blood in his colon but no source was seen in his colon as a source of bleeding. We did intubate his terminal ileum and there was some old blood in the terminal ileum. Therefore I ordered a CT angiography to try to locate the source of bleeding in the GI tract. No signs or symptoms of bleeding was seen at the time of the CT angiography. Objective Data Objective Data Vital Signs: Vital Signs Temp Pulse Resp BP Pulse Ox O2 Del Method 98.7 F 72 18 123/75 H 100 Room Air 02/10/23 15:09 02/10/23 15:09 02/10/23 15:09 02/10/23 15:09 02/10/23 15:09 02/10/23 15:09 Oxygen Delivery Method Room Air Weight: 165 lb 9.074 oz Body Mass Index (BMI) 23.7 Intake & Output: Intake and Output for Last 24 Hours 02/08/23 02/09/23 02/10/23 23:59 23:59 23:59 Intake Total 600 / 600 400 / 400 445 / 445 Output Total 1 / 1 0 / 0 Balance 599 / 599 400 / 400 445 / 445 Lab / Micro Data 02/10/23 04:25 02/10/23 04:25 Labs: Laboratory Results - last 24 hr 02/09/23 11:40: Blood Type O POSITIVE, Antibody Screen NEGATIVE, Crossmatch See Detail 02/10/23 04:25: WBC 10.7, RBC 2.36 L, Hgb 6.9 L, Hct 21.8 L, MCV 92.4, MCH 29.2, MCHC 31.7 L, RDW Std Deviation 51.5 H, RDW Coeff of Terry 15.8 H, Plt Count 346, MPV 8.9, PT 14.3, INR 1.1, APTT 30.0, Sodium 141, Potassium 3.7, Chloride 109 H, Carbon Dioxide 29.0, Anion Gap 3 L, BUN 14, Creatinine 0.68 L, Estim Creat Clear Calc 70.97, Est GFR (MDRD) Af Amer 148, Est GFR (MDRD) Non-Af 122, BUN/Creatinine Ratio 20.6 H, Glucose 109 H, Calcium 7.6 L Radiography Diagnostic Testing: Radiology Impression Abdomen/Pelvis CTA 02/10/23 13:15 IMPRESSION: 2 vascular clips are seen in the region of the cecum. Small gallstones. Horseshoe kidneys. Small bilateral pleural effusions with bibasilar atelectasis more pronounced on the right side. Sigmoid diverticulosis. Electronically Signed: Steven Weiner MD at 14:07 EDT , Physical Exam Narrative General: Alert, Oriented x3, Cooperative, No apparent distress HEENT: Atraumatic, PERRLA, EOMI, Normocephalic Oral: Moist Mucosa Neck: Supple, No JVD Lungs: Diminished, Normal air movement, No rhonchi, No wheeze, No rales Cardiovascular: Regular rate, Regular Rhythm, Normal S1, Normal S2, No murmurs Abdomen: Soft, Non Tender, Non-Distended, No Hepato-splenomegaly Extremities: No edema, Capillary Refill Less than 3 Seconds Skin: No rashes, No breakdown Musculoskeletal: No Tenderness to Palpation of Joints or Extremities Neurological: Cranial nerves II-XII grossly intact, Motor Exam 5/5 strength throughout, Sensory exam intact to light touch and pain Psych/Mental Status: Normal Affect, Appropriate Assessment & Plan Assessment/Plan (1) Lower GI bleed: (2) COVID: PLAN: Plan #Acute lower GI bleed * CT abdomen showed fluid filled distended small bowel loops and fluid filled d ilated small bowel and ascending colon with no evidence of acute diverticulitis * colonoscopy today shoed diverticulosis and an ulcer at the hepatic flexure which was treated endoscopically. * He will need a capsule endoscopy as an outpatient to look for signs of GI bleeding in the small bowel * Advance diet as tolerated * # Acute blood loss anemia * Hb today is 8, after blood transfusion for hemoglobin of 6.4. Baseline Hb is 14-15/ * transfuse if hb <7 * #COVID 19 infection: asymptomatic. On room air. Will monitor #Hypertension; HCTZ on hold due to dehydration and near syncope. 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
[2023-02-10] MEDS: Sodium Ferric Gluconat/Sucrose 250 MG in 0.9% Normal Saline (250mL Bag) 250 ML 135 MG IV (17:55)
[2023-02-10] MEDS: Haloperidol 5 MG Tablet PO (22:01)
[2023-02-10] MEDS: MELATONIN 3 MG TABLET PO (22:01)
[2023-02-10] MEDS: 0.9% Saline Lock 10 ML Syringe IV (22:03)
[2023-02-11 03:40] VITALS: BP 111/57; PULSE 64; RESP 16; TEMP 36.9; O2SAT 95
[2023-02-11 08:04] LABS: Absolute Lymphocyte Count 0.88 X10^3/uL (0.83-4.51); Absolute Neutrophil Count 6.8 X10^3/uL (2.0-7.7); Basophil# 0.06 X10^3/uL; Basophil% 0.6 % (0-1); Eosinophil# 0.42 X10^3/uL; Eosinophils% 4.5 % (0-5); Hematocrit 24.7 % (40-54); Hemoglobin 7.6 g/dL (13.0-16.5); Lymphocyte # 0.88 X10^3/ul (0.83-4.51); Lymphocyte % 9.5 % (19-41); Mean Corp Hgb Conc 30.8 g/dL (32-36); Mean Corpuscular Hgb 29.3 pg (27.0-32.0); Mean Corpuscular Volume 95.4 fL (80-94); Monocyte# 1.03 X10^3/uL; Monocyte% 11.1 % (0-10); NRBC Flagged by Analyzer 0 % (0-5); Neutrophil # 6.82 X10^3/uL (2.7-7.7); Neutrophil % 73.4 % (47-70); Platelet Count 387 K/mm3 (150-450); RBC Distribution Width CV 15.1 % (11.6-14.6); RBC Distribution Width SD 51.7 fl (35.1-43.9); Red Blood Count 2.59 M/mm3 (4.6-6.2); White Blood Count 9.3 K/mm3 (4.4-11.0)
[2023-02-11 08:26] LABS: Anion Gap 4 (5-15); BUN 7 mg/dL (7-18); BUN/Creat Ratio 9.3 RATIO (10-20); Calcium,Total 8.1 mg/dL (8.5-10.1); Chloride 109 mmol/L (98-107); Creatinine, Serum 0.75 mg/dL (0.70-1.30); EST Glomerular Filtration Rate 109 mL/min (>60); Est Glom Filt Rate - Afr Amer 131 mL/min (>60); Estimated Creatinine Clearance 70.97 ml/min; Glucose 92 mg/dL (74-106); Potassium 3.9 mmol/L (3.5-5.1); Sodium Level 141 mmol/L (136-145)
[2023-02-11 09:18] VITALS: BP 106/59; PULSE 73; RESP 14; TEMP 36.9; O2SAT 98
[2023-02-11] MEDS: buPROPion (SR) 150 MG Tablet.SA PO ×2 (09:22→21:12)
[2023-02-11 12:41] LABS: Hematocrit 27.2 % (40-54); Hemoglobin 8.4 g/dL (13.0-16.5)
--- NOTE | 2023-02-11 13:22 | PN.HOSP_ITS ---
Subjective Subjective Doing well, no issues overnight. Hemoglobin dropped to 7.6 but on recheck it appears to be 8.4 this afternoon. Objective Data Objective Data Vital Signs: Vital Signs Temp Pulse Resp BP Pulse Ox O2 Del Method 98.4 F 73 14 106/59 L 98 Room Air 02/11/23 09:18 02/11/23 09:18 02/11/23 09:18 02/11/23 09:18 02/11/23 09:18 02/11/23 09:18 Oxygen Delivery Method Room Air Weight: 165 lb 9.074 oz Body Mass Index (BMI) 23.7 Intake & Output: Intake and Output for Last 24 Hours 02/10/23 02/11/23 02/12/23 03:59 03:59 03:59 Intake Total 400 / 400 935 / 935 120 / 120 Output Total 0 / 0 Balance 400 / 400 935 / 935 120 / 120 Lab / Micro Data 02/11/23 12:15 02/11/23 06:58 Labs: Laboratory Results - last 24 hr 02/11/23 06:58: WBC 9.3, RBC 2.59 L, Hgb 7.6 L, Hct 24.7 L, MCV 95.4 H, MCH 29.3, MCHC 30.8 L, RDW Std Deviation 51.7 H, RDW Coeff of Terry 15.1 H, Plt Count 387, MPV 9.0, Immature Gran % (Auto) 0.900, Neut % (Auto) 73.4 H, Lymph % (Auto) 9.5 L, [place] % (Auto) 11.1 H, Eos % (Auto) 4.5, Baso % (Auto) 0.6, Absolute Neuts (auto) 6.8, Absolute Lymphs (auto) 0.88, Nucleated RBC % 0, Sodium 141, Potassium 3.9, Chloride 109 H, Carbon Dioxide 28.0, Anion Gap 4 L, BUN 7, Cre atinine 0.75, Estim Creat Clear Calc 70.97, Est GFR (MDRD) Af Amer 131, Est GFR (MDRD) Non-Af 109, BUN/Creatinine Ratio 9.3 L, Glucose 92, Calcium 8.1 L 02/11/23 12:15: Hgb 8.4 L, Hct 27.2 L Radiography Diagnostic Testing: Radiology Impression Abdomen/Pelvis CTA 02/10/23 13:15 IMPRESSION: 2 vascular clips are seen in the region of the cecum. Small gallstones. Horseshoe kidneys. Small bilateral pleural effusions with bibasilar atelectasis more pronounced on the right side. Sigmoid diverticulosis. Electronically Signed: Steven Weiner MD at 14:07 EDT , Physical Exam Narrative General: Alert, Oriented x3, Cooperative, No apparent distress HEENT: Atraumatic, PERRLA, EOMI, Normocephalic Oral: Moist Mucosa Neck: Supple, No JVD Lungs: Diminished, Normal air movement, No rhonchi, No wheeze, No rales Cardiovascular: Regular rate, Regular Rhythm, Normal S1, Normal S2, No murmurs Abdomen: Soft, Non Tender, Non-Distended, No Hepato-splenomegaly Extremities: No edema, Capillary Refill Less than 3 Seconds Skin: No rashes, No breakdown Musculoskeletal: No Tenderness to Palpation of Joints or Extremities Neurological: Cranial nerves II-XII grossly intact, Motor Exam 5/5 strength throughout, Sensory exam intact to light touch and pain Psych/Mental Status: Normal Affect, Appropriate Assessment & Plan Assessment/Plan (1) Acute lower gastrointestinal bleeding: PLAN: Plan 1. Lower GI bleed, acute blood loss anemia on chronic anemia Patient was recently hospitalized from 02/03 to 02/05 for lower GI bleed. S/p colonoscopy with Dr. Aceves on 02/04 that showed diverticulosis of the entire examined colon, one 9 mm polyp at hepatic flexure that was removed with hot snare. Baseline hemoglobin prior to that admission was noted to be around 14- 15, was down to 9.4 then. Hemoglobin remained stable around 9 during admission, did not require any blood transfusions. Hemoglobin 6.5 on admission on 02/06. S/p 2 units of packed red blood cells on 02/06 with repeat hemoglobin of 8.4. ? Gastroenterology following. S/p colonoscopy on 02/07, single solitary ulcer found at hepatic flexure, was injected and clips were placed. ?1 unit PRBCs on 02/10/2023, hemoglobin this morning was 7.6 recheck this a fternoon was 8.4 2. Mild hypotension?resolved Chronic medical conditions: ? Paranoid schizophrenia: Continue home bupropion and Haldol. ? BPH: Holding home Flomax due to hypotension as noted above. DVT: SCDs Charges/Coding Visit Charges Inpatient E&M: 45468 Subs Hosp L2
[2023-02-11 14:35] VITALS: BP 123/62; PULSE 73; RESP 16; TEMP 37.2; O2SAT 96
--- NOTE | 2023-02-11 15:45 | CASEMGMT ---
Addendum entered by Elsie Orellana 02/11/23 16:38: SW notified registration of patient having a guardian. Registration reports they will alejandro guardianship designation for patient and review. HENRRY Akhtar Original Note: Social Work SW introduced self and role to patient. SW discussed advance directives with patient due to none on file. Pt was unsure about what advance directives are and SW explained HCPOA and LW documents to patient's understanding. Pt said Oh I have someone for decisions. I have a guardian. SW was not aware patient had a guardian. Pt provided info from personal notebook brought to ED, Adria Alexander, civil rights attorney [phone]. SW thanked patient, who denied any further social work needs. SW did chart review, no documents or indicators regarding patient having a legal guardian. SW called number patient provided. Law office [facility] in [place] confirms that patient has a legal guardian, Adria Alexander. SUNITA spoke with lis who agreed to fax guardianship documents. Plan: SW awaiting guardianship documents to update patient's record. Medical staff to be notified. HENRRY Akhtar
--- NOTE | 2023-02-11 16:18 | CASEMGMT ---
SUNITA placed a copy of guardianship paper in patient's chart. SUNITA also spoke with Ashly at [facility] Law Office and if staff needs to reach the guardian to call [phone]. Staff can leave a voice mail and the guardian, Adria Alexander will get the voice mail. Jessica Carr [employer] [place]
--- NOTE | 2023-02-11 18:58 | PN.GI_ITS ---
Subjective Subjective No sign of GI bleeding today. Objective Data Objective Data Vital Signs: Vital Signs Temp Pulse Resp BP Pulse Ox O2 Del Method 98.9 F 73 16 123/62 H 96 Room Air 02/11/23 14:35 02/11/23 14:35 02/11/23 14:35 02/11/23 14:35 02/11/23 14:35 02/11/23 14:35 Oxygen Delivery Method Room Air Weight: 165 lb 9.074 oz Body Mass Index (BMI) 23.7 Intake & Output: Intake and Output for Last 24 Hours 02/09/23 02/10/23 02/11/23 23:59 23:59 23:59 Intake Total 400 / 400 935 / 935 360 / 360 Output Total 0 / 0 Balance 400 / 400 935 / 935 360 / 360 Lab / Micro Data 02/11/23 12:15 02/11/23 06:58 Labs: Laboratory Results - last 24 hr 02/11/23 06:58: WBC 9.3, RBC 2.59 L, Hgb 7.6 L, Hct 24.7 L, MCV 95.4 H, MCH 29.3, MCHC 30.8 L, RDW Std Deviation 51.7 H, RDW Coeff of Terry 15.1 H, Plt Count 387, MPV 9.0, Immature Gran % (Auto) 0.900, Neut % (Auto) 73.4 H, Lymph % (Auto) 9.5 L, [place] % (Auto) 11.1 H, Eos % (Auto) 4.5, Baso % (Auto) 0.6, Absolute Neuts (auto) 6.8, Absolute Lymphs (auto) 0.88, Nucleated RBC % 0, Sodium 141, Potas sium 3.9, Chloride 109 H, Carbon Dioxide 28.0, Anion Gap 4 L, BUN 7, Creatinine 0.75, Estim Creat Clear Calc 70.97, Est GFR (MDRD) Af Amer 131, Est GFR (MDRD) Non-Af 109, BUN/Creatinine Ratio 9.3 L, Glucose 92, Calcium 8.1 L 02/11/23 12:15: Hgb 8.4 L, Hct 27.2 L Physical Exam Narrative General: Alert, Oriented x3, Cooperative, No apparent distress HEENT: Atraumatic, PERRLA, EOMI, Normocephalic Oral: Moist Mucosa Neck: Supple, No JVD Lungs: Diminished, Normal air movement, No rhonchi, No wheeze, No rales Cardiovascular: Regular rate, Regular Rhythm, Normal S1, Normal S2, No murmurs Abdomen: Soft, Non Tender, Non-Distended, No Hepato-splenomegaly Extremities: No edema, Capillary Refill Less than 3 Seconds Skin: No rashes, No breakdown Musculoskeletal: No Tenderness to Palpation of Joints or Extremities Neurological: Cranial nerves II-XII grossly intact, Motor Exam 5/5 strength throughout, Sensory exam intact to light touch and pain Psych/Mental Status: Normal Affect, Appropriate Assessment & Plan Assessment/Plan (1) Lower GI bleed: (2) COVID: PLAN: Plan #Acute lower GI bleed * CT abdomen showed fluid filled distended small bowel loops and fluid filled dilated small bowel and ascending colon with no evidence of acute diverticulitis * colonoscopy today shoed diverticulosis and an ulcer at the hepatic flexure which was treated endoscopically. * He will need a capsule endoscopy as an outpatient to look for signs of GI bleeding in the small bowel * Advance diet as tolerated * # Acute blood loss anemia * Hb today is 8.4, after blood transfusion for hemoglobin of 6.4. Baseline Hb is 14-15 * transfuse if hb <7 * Hopefully his blood count will equilibrate. I will transfuse him iron. * #COVID 19 infection: asymptomatic. On room air. Will monitor #Hypertension; HCTZ on hold due to dehydration and near syncope. 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
[2023-02-11] MEDS: 0.9% Saline Lock 10 ML Syringe IV (20:03)
[2023-02-11] MEDS: Sodium Ferric Gluconat/Sucrose 250 MG in 0.9% Normal Saline (250mL Bag) 250 ML 135 MG IV (20:03)
[2023-02-11] MEDS: Haloperidol 5 MG Tablet PO (21:12)
[2023-02-11] MEDS: MELATONIN 3 MG TABLET PO (21:12)
[2023-02-11 21:14] VITALS: BP 144/71; PULSE 71; RESP 17; TEMP 37.1; O2SAT 99
[2023-02-11] MEDS: Senna Tablet 1 TABLET PO (22:45)
[2023-02-12] VITALS (10 sets, daily range): BP systolic 105–147; BP diastolic 53–76; PULSE 64–78; RESP 15–18; TEMP 36.4–37.4; O2SAT 96–100
[2023-02-12 06:04] LABS: Absolute Lymphocyte Count 1.25 X10^3/uL (0.83-4.51); Basophil# 0.05 X10^3/uL; Basophil% 0.5 % (0-1); Eosinophil# 0.43 X10^3/uL; Eosinophils% 4.3 % (0-5); Hematocrit 22.2 % (40-54); Hemoglobin 6.9 g/dL (13.0-16.5); Lymphocyte # 1.25 X10^3/ul (0.83-4.51); Lymphocyte % 12.4 % (19-41); Mean Corp Hgb Conc 31.1 g/dL (32-36); Mean Corpuscular Hgb 29.6 pg (27.0-32.0); Mean Corpuscular Volume 95.3 fL (80-94); Mean Platelet Vol. 8.8 fl (6.2-12.0); Monocyte# 1.27 X10^3/uL; Monocyte% 12.6 % (0-10); NRBC Flagged by Analyzer 0 % (0-5); Neutrophil # 7.03 X10^3/uL (2.7-7.7); Neutrophil % 69.4 % (47-70); Platelet Count 399 K/mm3 (150-450); RBC Distribution Width CV 14.8 % (11.6-14.6); RBC Distribution Width SD 50.8 fl (35.1-43.9); Red Blood Count 2.33 M/mm3 (4.6-6.2); White Blood Count 10.1 K/mm3 (4.4-11.0)
[2023-02-12 06:38] LABS: Anion Gap 2 (5-15); BUN 6 mg/dL (7-18); BUN/Creat Ratio 8.3 RATIO (10-20); Calcium,Total 7.8 mg/dL (8.5-10.1); Chloride 110 mmol/L (98-107); Creatinine, Serum 0.73 mg/dL (0.70-1.30); EST Glomerular Filtration Rate 113 mL/min (>60); Est Glom Filt Rate - Afr Amer 137 mL/min (>60); Estimated Creatinine Clearance 70.97 ml/min; Glucose 91 mg/dL (74-106); Potassium 3.6 mmol/L (3.5-5.1); Sodium Level 140 mmol/L (136-145)
[2023-02-12 08:11] LABS: LDH 207 U/L (87-241)
[2023-02-12] MEDS: buPROPion (SR) 150 MG Tablet.SA PO ×2 (09:22→21:50)
[2023-02-12] MEDS: Senna Tablet 1 TABLET PO ×2 (09:24→21:50)
--- NOTE | 2023-02-12 09:50 | PN.HOSP_ITS ---
Subjective Subjective Doing well, feels little bit constipated. Objective Data Objective Data Vital Signs: Vital Signs Temp Pulse Resp BP Pulse Ox O2 Del Method 98.4 F 76 16 124/54 H 100 Room Air 02/12/23 09:18 02/12/23 09:18 02/12/23 09:18 02/12/23 09:18 02/12/23 09:18 02/12/23 09:18 Oxygen Delivery Method Room Air Weight: 165 lb 9.074 oz Body Mass Index (BMI) 23.7 Intake & Output: Intake and Output for Last 24 Hours 02/11/23 02/12/23 02/13/23 03:59 03:59 03:59 Intake Total 935 / 935 630 / 630 Output Total 0 / 0 Balance 935 / 935 630 / 630 Lab / Micro Data 02/12/23 05:30 02/12/23 05:30 Labs: Laboratory Results - last 24 hr 02/11/23 12:15: Hgb 8.4 L, Hct 27.2 L 02/12/23 05:30: WBC 10.1, RBC 2.33 L, Hgb 6.9 L, Hct 22.2 L, MCV 95.3 H, MCH 29.6, MCHC 31.1 L, RDW Std Deviation 50.8 H, RDW Coeff of Terry 14.8 H, Plt Count 399, MPV 8.8, Immature Gran % (Auto) 0.800, Neut % (Auto) 69.4, Lymph % (Auto) 12.4 L, [place] % (Auto) 12.6 H, Eos % (Auto) 4.3, Baso % (Auto) 0.5, Absolute Neut s (auto) 7.0, Absolute Lymphs (auto) 1.25, Nucleated RBC % 0, Sodium 140, Potassium 3.6, Chloride 110 H, Carbon Dioxide 28.0, Anion Gap 2 L, BUN 6 L, Creatinine 0.73, Estim Creat Clear Calc 70.97, Est GFR (MDRD) Af Amer 137, Est GFR (MDRD) Non-Af 113, BUN/Creatinine Ratio 8.3 L, Glucose 91, Calcium 7.8 L, Direct Bilirubin 0.10, Lactate Dehydrogenase 207, Direct Antiglob Test NEG w/P OLYSPECIFIC Physical Exam Narrative General: Alert, Oriented x3, Cooperative, No apparent distress HEENT: Atraumatic, PERRLA, EOMI, Normocephalic Oral: Moist Mucosa Neck: Supple, No JVD Lungs: Diminished, Normal air movement, No rhonchi, No wheeze, No rales Cardiovascular: Regular rate, Regular Rhythm, Normal S1, Normal S2, No murmurs Abdomen: Soft, Non Tender, Non-Distended, No Hepato-splenomegaly Extremities: No edema, Capillary Refill Less than 3 Seconds Skin: No rashes, No breakdown Musculoskeletal: No Tenderness to Palpation of Joints or Extremities Neurological: Cranial nerves II-XII grossly intact, Motor Exam 5/5 strength throughout, Sensory exam intact to light touch and pain Psych/Mental Status: Normal Affect, Appropriate Assessment & Plan Assessment/Plan (1) Acute lower gastrointestinal bleeding: PLAN: Plan 1. Lower GI bleed, acute blood loss anemia on chronic anemia Patient was recently hospitalized from 02/03 to 02/05 for lower GI bleed. S/p colonoscopy with Dr. Aceves on 02/04 that showed diverticulosis of the entire examined colon, one 9 mm polyp at hepatic flexure that was removed with hot snare. Baseline hemoglobin prior to that admission was noted to be around 14- 15, was down to 9.4 then. Hemoglobin remained stable around 9 during admission, did not require any blood transfusions. Hemoglobin 6.5 on admission on 02/06. S/p 2 units of packed red blood cells on 02/06 with repeat hemoglobin of 8.4. ? Gastroenterology following. S/p colonoscopy on 02/07, single solitary ulcer found at hepatic flexure, was injected and clips were placed. ?1 unit PRBCs on 02/10/2023, hemoglobin this morning was 7.6 recheck this afternoon was 8.4 ? Hemoglobin today of 6.9 will transfuse 2 units, LDH and direct Natalia as well as direct bilirubin are all normal so hemolysis unlikely 2. Mild hypotension?resolved Chronic medical conditions: ? Paranoid schizophrenia: Continue home bupropion and Haldol. ? BPH: Holding home Flomax due to hypotension as noted above. DVT: SCDs Charges/Coding Visit Charges Inpatient E&M: 66454 Subs Hosp L2
[2023-02-12] MEDS: Polyethylene Glycol 3350 17 GM PACKET PO (10:40)
[2023-02-12] MEDS: 0.9% Saline Lock 10 ML Syringe IV ×3 (13:11→22:25)
--- NOTE | 2023-02-12 16:46 | PN.GI_ITS ---
Subjective Subjective Patient's hemoglobin went back down to 6.9 from 8.4. He has not seen any GI bleeding. He is tolerating a diet without any problems. Objective Data Objective Data Vital Signs: Vital Signs Temp Pulse Resp BP Pulse Ox O2 Del Method 98.6 F 75 16 125/71 H 98 Room Air 02/12/23 15:56 02/12/23 15:56 02/12/23 15:56 02/12/23 15:56 02/12/23 15:56 02/12/23 15:56 Oxygen Delivery Method Room Air Weight: 165 lb 9.074 oz Body Mass Index (BMI) 23.7 Intake & Output: Intake and Output for Last 24 Hours 02/10/23 02/11/23 02/12/23 23:59 23:59 23:59 Intake Total 935 / 935 630 / 630 551 / 551 Output Total 0 / 0 Balance 935 / 935 630 / 630 551 / 551 Lab / Micro Data 02/12/23 05:30 02/12/23 05:30 Labs: Laboratory Results - last 24 hr 02/12/23 05:30: WBC 10.1, RBC 2.33 L, Hgb 6.9 L, Hct 22.2 L, MCV 95.3 H, MCH 29.6, MCHC 31.1 L, RDW Std Deviation 50.8 H, RDW Coeff of Terry 14.8 H, Plt Count 399, MPV 8.8, Immature Gran % (Auto) 0.800, Neut % (Auto) 69.4, Lymph % (Auto) 12.4 L, [place] % (Auto) 12.6 H, Eos % (Auto) 4.3, Baso % (Auto) 0.5, Absolute Ne uts (auto) 7.0, Absolute Lymphs (auto) 1.25, Nucleated RBC % 0, Sodium 140, Potassium 3.6, Chloride 110 H, Carbon Dioxide 28.0, Anion Gap 2 L, BUN 6 L, Creatinine 0.73, Estim Creat Clear Calc 70.97, Est GFR (MDRD) Af Amer 137, Est GFR (MDRD) Non-Af 113, BUN/Creatinine Ratio 8.3 L, Glucose 91, Calcium 7.8 L, Direct Bilirubin 0.10, Lactate Dehydrogenase 207, Direct Antiglob Test NEG w /POLYSPECIFIC 02/12/23 09:38: Blood Type O POSITIVE, Antibody Screen NEGATIVE, Crossmatch See Detail Physical Exam Narrative General: Alert, Oriented x3, Cooperative, No apparent distress HEENT: Atraumatic, PERRLA, EOMI, Normocephalic Oral: Moist Mucosa Neck: Supple, No JVD Lungs: Diminished, Normal air movement, No rhonchi, No wheeze, No rales Cardiovascular: Regular rate, Regular Rhythm, Normal S1, Normal S2, No murmurs Abdomen: Soft, Non Tender, Non-Distended, No Hepato-splenomegaly Extremities: No edema, Capillary Refill Less than 3 Seconds Skin: No rashes, No breakdown Musculoskeletal: No Tenderness to Palpation of Joints or Extremities Neurological: Cranial nerves II-XII grossly intact, Motor Exam 5/5 strength throughout, Sensory exam intact to light touch and pain Psych/Mental Status: Normal Affect, Appropriate Assessment & Plan Assessment/Plan (1) Lower GI bleed: (2) COVID: PLAN: Plan #Acute lower GI bleed * CT abdomen showed fluid filled distended small bowel loops and fluid filled dilated small bowel and ascending colon with no evidence of acute diverticulitis * colonoscopy today shoed diverticulosis and an ulcer at the hepatic flexure which was treated endoscopically. * He will need a capsule endoscopy as an outpatient to look for signs of GI bleeding in the small bowel * Advance diet as tolerated * # Acute blood loss anemia * Hb today is 8.4, after blood transfusion for hemoglobin of 6.4. Baseline Hb is 14-15 * transfuse if hb <7 * Hopefully his blood count will equilibrate. I will transfuse him iron. * #COVID 19 infection: asymptomatic. On room air. Will monitor 02/12-no signs and symptoms of GI bleeding at this time. Continue to monitor H&H. Agree with blood transfusion. He will need outpatient capsule endoscopy. Charges/Coding Visit Charges Inpatient E&M: 34457 Subs Hosp L3
[2023-02-12] MEDS: Haloperidol 5 MG Tablet PO (21:50)
[2023-02-12] MEDS: Acetaminophen 325 MG Tablet 650 MG PO (22:24)
[2023-02-12] MEDS: MELATONIN 3 MG TABLET PO (22:25)
[2023-02-13 02:02] VITALS: BP 105/61; PULSE 61; RESP 18; TEMP 36.3; O2SAT 96
[2023-02-13 05:56] VITALS: BP 123/60; PULSE 70; RESP 18; TEMP 36.4; O2SAT 95
[2023-02-13 07:02] LABS: Absolute Lymphocyte Count 1.35 X10^3/uL (0.83-4.51); Absolute Neutrophil Count 6.7 X10^3/uL (2.0-7.7); Basophil# 0.06 X10^3/uL; Basophil% 0.6 % (0-1); Eosinophil# 0.46 X10^3/uL; Eosinophils% 4.7 % (0-5); Hemoglobin 9.3 g/dL (13.0-16.5); Lymphocyte # 1.35 X10^3/ul (0.83-4.51); Lymphocyte % 13.7 % (19-41); Mean Corpuscular Volume 93.5 fL (80-94); Mean Platelet Vol. 8.7 fl (6.2-12.0); Monocyte# 1.22 X10^3/uL; Monocyte% 12.4 % (0-10); NRBC Flagged by Analyzer 0 % (0-5); Neutrophil # 6.66 X10^3/uL (2.7-7.7); Neutrophil % 67.9 % (47-70); Platelet Count 465 K/mm3 (150-450); RBC Distribution Width CV 16.4 % (11.6-14.6); RBC Distribution Width SD 53.5 fl (35.1-43.9); Red Blood Count 3.21 M/mm3 (4.6-6.2); White Blood Count 9.8 K/mm3 (4.4-11.0)
[2023-02-13 07:37] LABS: Anion Gap 2 (5-15); BUN 7 mg/dL (7-18); BUN/Creat Ratio 9.3 RATIO (10-20); Calcium,Total 8.2 mg/dL (8.5-10.1); Chloride 109 mmol/L (98-107); Creatinine, Serum 0.75 mg/dL (0.70-1.30); EST Glomerular Filtration Rate 109 mL/min (>60); Est Glom Filt Rate - Afr Amer 131 mL/min (>60); Estimated Creatinine Clearance 70.97 ml/min; Glucose 85 mg/dL (74-106); Potassium 3.9 mmol/L (3.5-5.1); Sodium Level 140 mmol/L (136-145)
[2023-02-13 08:59] VITALS: BP 133/76; PULSE 72; RESP 18; TEMP 36.5; O2SAT 99
[2023-02-13] MEDS: buPROPion (SR) 150 MG Tablet.SA PO (09:00)
[2023-02-13] MEDS: Senna Tablet 1 TABLET PO (09:00)
[2023-02-13] MEDS: Polyethylene Glycol 3350 17 GM PACKET PO (09:00)
[2023-02-13 12:44] LABS: Hematocrit 30.3 % (40-54); Hemoglobin 9.3 g/dL (13.0-16.5)
--- NOTE | 2023-02-13 13:55 | PCM.DC ---
Discharge Instructions Diet Discharge Diet: No restrictions Activity Discharge Activity: Return to Normal Activity Dressing / Incision Call your doctor if you observe: Fever of 101 or Higher, Shortness of breath, Dizziness, Fainting spells, Swelling in the ankles, Chest pain and Increased palpitations (irregular heartbeat) Follow Up Care Test Results: Test results from this visit will be discussed in further detail at your follow-up appointment, if applicable. Discharge Plan Admission Admit Date/Time: 02/06/23 12:05 Attending Provider: Rodger Lynn Primary Care Provider: Anitra Bacon NP Consulting Providers: Michel Garcia Instructions Additional Instructions / Restrictions: Follow-up with your PCP to obtain a hemoglobin to monitor your anemia as an outpatient. Discharge Orders/Prescriptions Prescriptions: Continued sennosides-docusate sodium [Senna Plus] 8.6-50 mg tablet 1 tab-cap PO BID acetaminophen 500 mg tablet 1,000 mg PO BID PRN (Reason: fever or pain) bupropion HCl 150 mg tablet sustained-release 12 hr 150 mg PO BID hydrochlorothiazide 25 mg tablet 25 mg PO DAILY haloperidol 5 mg tablet 5 mg PO QHS tamsulosin 0.4 mg capsule 0.4 mg PO QHS Referrals / Follow Up: Sudhir Hughes Chi, MD [Med Staff - Active Staff] - Anitra Bacon PRISON CLASSIFICATION COUNSELOR, PRISON CLASSIFICATION COUNSELOR-C [Primary Care Provider] - Disposition Disposition (needs filled in before D/C Order can be placed): Assisted Living
[2023-02-13 15:07] VITALS: BP 150/81; PULSE 78; RESP 18; TEMP 36.5; O2SAT 98
--- NOTE | 2023-02-13 16:06 | NURSING ---
Called report to nurse Nix at [facility]
--- NOTE | 2023-02-13 16:47 | DS.PCM_ITS ---
Providers Date of Admission: 02/06/23 Primary Care Physician: ANTONIO Santana Consultations 02/06/23 12:09 Consult: Gastroenterology Routine Consulting Provider: [facility] Reason for Consult: Lower GI bleed EMERGENT Consult: No MD Notified: Yes Date Notified: 02/06/23 Time Notified: 13:18 Method of Notification: Text Reason For Visit: LOWER GI BLEED Diagnosis Discharge Diagnosis (1) Lower GI bleed: Status: Resolved Code(s): K92.2 - Gastrointestinal hemorrhage, unspecified (2) COVID: Status: Inactive Code(s): U07.1 - COVID-19 Plan 1. Lower GI bleed, acute blood loss anemia on chronic anemia Patient was recently hospitalized from 02/03 to 02/05 for lower GI bleed. S/p colonoscopy with Dr. Aceves on 02/04 that showed diverticulosis of the entire examined colon, one 9 mm polyp at hepatic flexure that was removed with hot snare. Baseline hemoglobin prior to that admission was noted to be around 14- 15, was down to 9.4 then. Hemoglobin remained stable around 9 during admission, did not require any blood transfusions. Hemoglobin 6.5 on admission on 02/06. S/p 2 units of packed red blood cells on 02/06 with repeat hemoglobin of 8.4. ? Gastroenterology following. S/p colonoscopy on 02/07, single solitary ulcer found at hepatic flexure, was injected and clips were placed. ?1 unit PRBCs on 02/10/2023, hemoglobin this morning was 7.6 recheck this afternoon was 8.4 ? Hemoglobin today of 6.9 will transfuse 2 units, LDH and direct Natalia as well as direct bilirubin are all normal so hemolysis unlikely 2. Mild hypotension?resolved Chronic medical conditions: ? Paranoid schizophrenia: Continue home bupropion and Haldol. ? BPH: Holding home Flomax due to hypotension as noted above. DVT: SCDs Medications at Discharge Home Medications bupropion HCl 150 mg tablet,12 hr sustained-release 150 mg PO BID 09/25/22 hydrochlorothiazide 25 mg tablet 25 mg PO DAILY 09/25/22 acetaminophen 500 mg tablet 1,000 mg PO BID PRN fever or pain 10/14/22 haloperidol 5 mg tablet 5 mg PO QHS 10/14/22 sennosides 8.6 mg-docusate sodium 50 mg tablet (Senna Plus) 1 tab-cap PO BID 10/14/22 tamsulosin 0.4 mg capsule 0.4 mg PO QHS 02/03/23 Hospital Course Operations None Procedures Colonoscopy and EGD Summary of Care Provided Minutes Spent on Discharge: 42 Hospital Course: Hospital Course: 1. Lower GI bleed with acute blood loss anemia on chronic anemia?72-year-old male presented to the hospital with lower GI bleed from assisted living. He was initially hospitalized from 02 03-02 05 with a lower GI bleed and had a colonoscopy at that time that showed diverticulosis and one 9 mm polyp. This w as removed at the hepatic flexure repeat admission where his hemoglobin had dropped to 6.5 and he has needed multiple blood transfusions, it was found that he had ulceration in that hepatic flexure where the initial polyp had been removed. He did continue to drop his hemoglobin without any obvious signs of significant bleeding so an EGD was also performed that was unremarkable. On 02/12/2023 he received another 2 units of blood and his hemoglobin on the day of discharge was 9.3, given the previous issues with his hemoglobin dropping a repeat was checked at around 1 PM on the day of discharge and it was also still at 9.3, therefore I discussed with him the plan for discharge today and he ex pressed understanding of the risk benefits of going home and would like to go home today. I do recommend close outpatient monitoring of hemoglobin by his PCP, as he had no signs of upper bleed, will not discharge him on a PPI. 2. Paranoid schizophrenia, BPH are both chronic medical conditions which complicate his care. His home medications were continued where appropriate Physical Exam Narrative General: Alert, Oriented x3, Cooperative, No apparent distress HEENT: Atraumatic, PERRLA, EOMI, Normocephalic Oral: Moist Mucosa Neck: Supple, No JVD Lungs: Diminished, Normal air movement, No rhonchi, No wheeze, No rales Cardiovascular: Regular rate, Regular Rhythm, Normal S1, Normal S2, No murmurs Abdomen: Soft, Non Tender, Non-Distended, No Hepato-splenomegaly Extremities: No edema, Capillary Refill Less than 3 Seconds Skin: No rashes, No breakdown Musculoskeletal: No Tenderness to Palpation of Joints or Extremities Neurological: Cranial nerves II-XII grossly intact, Motor Exam 5/5 strength throughout, Sensory exam intact to light touch and pain Psych/Mental Status: Normal Affect, Appropriate Weight / BMI Weight Weight: 165 lb 9.074 oz Body Mass Index (BMI) 23.7 ABG / Lab / Microbiology Data 02/13/23 12:28 02/13/23 05:45 Laboratory: Laboratory Results - last 24 hr 02/12/23 09:38: Crossmatch See Detail 02/13/23 05:45: WBC 9.8, RBC 3.21 L, Hgb 9.3 L, Hct 30.0 L, MCV 93.5, MCH 29.0, MCHC 31.0 L, RDW Std Deviation 53.5 H, RDW Coeff of Terry 16.4 H, Plt Count 465 H, MPV 8.7, Immature Gran % (Auto) 0.700, Neut % (Auto) 67.9, Lymph % (Auto) 13.7 L , [place] % (Auto) 12.4 H, Eos % (Auto) 4.7, Baso % (Auto) 0.6, Absolute Neuts (auto) 6.7, Absolute Lymphs (auto) 1.35, Nucleated RBC % 0, Sodium 140, Potassium 3.9, Chloride 109 H, Carbon Dioxide 29.0, Anion Gap 2 L, BUN 7, Creatinine 0.75, Estim Creat Clear Calc 70.97, Est GFR (MDRD) Af Amer 131, Est GFR (MDRD) Non-Af 109, BUN/Creatinine Ratio 9.3 L, Glucose 85, Calcium 8.2 L 02/13/23 12:28: Hgb 9.3 L, Hct 30.3 L D/C Instructions Discharge Diet: No restrictions Call your doctor if you observe: Fever of 101 or Higher, Shortness of breath, Dizziness, Fainting spells, Swelling in the ankles, Chest pain and Increased palpitations (irregular heartbeat) Meaningful Use Info Meaningful Use Diagnoses (Choose all that apply): None applicable Discharge Plan Admission Admit Date/Time: 02/06/23 12:05 Attending Provider: Rodger Lynn Primary Care Provider: Anitra Bacon DIRECTOR OF CONTENT AND PROGRAMMING Consulting Providers: Michel Garcia Instructions Additional Instructions / Restrictions: Follow-up with your PCP to obtain a hemoglobin to monitor your anemia as an outpatient. Discharge Orders/Prescriptions Prescriptions: Continued sennosides-docusate sodium [Senna Plus] 8.6-50 mg tablet 1 tab-cap PO BID acetaminophen 500 mg tablet 1,000 mg PO BID PRN (Reason: fever or pain) bupropion HCl 150 mg tablet sustained-release 12 hr 150 mg PO BID hydrochlorothiazide 25 mg tablet 25 mg PO DAILY haloperidol 5 mg tablet 5 mg PO QHS tamsulosin 0.4 mg capsule 0.4 mg PO QHS Referrals / Follow Up: Sudhir Hughes Chi, MD [Med Staff - Active Staff] - Anitra Bacon DIRECTOR OF CONTENT AND PROGRAMMING, DIRECTOR OF CONTENT AND PROGRAMMING-C [Primary Care Provider] - Disposition Disposition (needs filled in before D/C Order can be placed): Assisted Living Charges/Coding Visit Charges Inpatient E&M: 69155 Disch Hosp >30min
[2023-02-13 17:44] VITALS: BP 159/84; PULSE 77; RESP 18; TEMP 36.8; O2SAT 100
== END 2023-02-13 18:33 | disposition home or self-care (01) | DRG 377 ==
LOC: ED 12:08 → PCU 12:18
PROVIDERS: Internal Medicine; Internal Medicine Gastroenterology; Admitting Provider Hospitalist; Emergency Provider Emergency Medicine; PCP Nurse Practitioner Adult Health; Visit Provider Family Medicine
PROC: 0DJD8ZZ Inspection of Lower Intestinal Tract, Via Natural or Artificial Opening Endoscopic (ICD-10-PCS; CPT 45378; principal; 2023-02-07 10:15)
DX: K92.2 Gastrointestinal hemorrhage, unspecified (principal); U07.1 COVID-19; K63.3 Ulcer of intestine; F20.0 Paranoid schizophrenia; D62 Acute posthemorrhagic anemia; I95.9 Hypotension, unspecified; K44.9 Diaphragmatic hernia without obstruction or gangrene; I10 Essential (primary) hypertension; K57.30 Diverticulosis of large intestine without perforation or abscess without bleeding; E78.2 Mixed hyperlipidemia; F17.210 Nicotine dependence, cigarettes, uncomplicated; N40.0 Benign prostatic hyperplasia without lower urinary tract symptoms; Z79.899 Other long term (current) drug therapy
CPT/HCPCS: 36415; 74174; 80048; 80053; 82248; 83615; 85014; 85018; 85025; 85027; 85610; 85730; 86644; 86850; 86880; 86900; 86901; 86920; 86922; 93005; 99285; 99406; J7030; J7040; J7050; J7120; P9016; Q9967; A4216; J2405; J2916